=== PATIENT | male | born 1985 | race African-American/Black ===

== ENCOUNTER 2017-01-05 05:33 | Inpatient (IN) | payer OTHER ==
--- NOTE | 2017-01-05 06:15 | PDOC ---
[id number] SIDE PAIN Time Seen by Provider: 01/05/17 05:45 - History of Present Illness Initial Comments: 01/05/17 06:12 CHIEF COMPLAINT: right sided chest pain HISTORY OF PRESENT ILLNESS: 31 yo M with hx of PE and sickle cell anemia presents to ED with R sided chest pain x 5 hours. Patient reports pleuritic chest pain that is worse with movement. He denies any shortness of breath, palpitations, headache, lightheadedness, dizziness, back pain. No recent travel or sick contacts. PAST MEDICAL HISTORY: Denies past medical history FAMILY HISTORY: Denies SOCIAL HISTORY: Current smoker. 3-5 cigarettes daily. Occasional alcohol use, denies illicit drug use. SURGICAL HISTORY: Denies ALLERGIES: No known drug allergies REVIEW OF SYSTEMS General/Constitutional: Denies fever or chills. Denies weakness, weight change. HEENT: Denies change in vision. Denies ear pain or discharge. Denies sore throat. Cardiovascular: R sided chest pain worsened by movement and inspiration. Respiratory: Denies cough, wheezing, or hemoptysis. Gastrointestinal: Denies nausea, vomiting, diarrhea or constipation. Denies rectal bleeding. Genitourinary: Denies dysuria, frequency, or change in urination. Musculoskeletal: Denies joint or muscle swelling or pain. Denies neck or back pain. Skin and breasts: Denies rash or easy bruising. Neurologic: Denies headache, vertigo, loss of consciousness, or loss of sensation. PHYSICAL EXAM General Appearance: Well-appearing, appropriately dressed. No apparent distress , no intoxication. HEENT: EOMI, PERRLA, normal ENT inspection, normal voice, TMs normal, pharynx normal. No conjunctival pallor. No photophobia, scleral icterus. Neck: Supple. Trachea midline. No tenderness, rigidity, carotid bruit, stridor , lymphadenopathy, or thyromegaly. Respiratory/Chest: Lungs CTAB. No shortness of breath, chest tenderness, respiratory distress, accessory muscle use. No crackles, rales, rhonchi, stridor , wheezing, dullness Cardiovascular: RRR. S1, S2. No JVD, murmur, bradycardia, tachycardia. Vascular Pulses: Dorsalis-Pedis (R): 2+, Dorsalis-Pedis (L): 2+ Gastrointestinal/Abdominal: Normal bowel sounds. Abdomen soft, non-distended. No tenderness or rebound tenderness. No organomegaly, pulsatile mass, guarding , hernia, hepatomegaly, splenomegaly. Musculoskeletal/Extremities: Normal inspection. FROM of all extremities, normal capillary refill. No tenderness to extremities, pedal edema, swelling, erythema or deformity. Integumentary: Appropriate color, dry, warm. No cyanosis, erythema, jaundice or rash Neurologic: ux information architect II-XII intact. Fully oriented, alert. Appropriate mood/affect. Motor strength 5/5. No appreciable EOM palsy, facial droop or sensory deficit. 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) Asthma: Yes Suicide Attempt (Hx): No - Immunization History Td Vaccination: No Immunization Up to Date: Yes (FLU UTD) - Psycho/Social/Smoking Cessation Hx Anxiety: No Suicidal Ideation: No Smoking History: Never smoked Have you smoked in the past 12 months: Yes Number of Cigarettes Smoked Daily: 8 If you are a former smoker, when did you quit?: REF BOOKLET Information on smoking cessation initiated: No 'Breaking Loose' booklet given: 07/22/15 Hx Alcohol Use: No Drug/Substance Use Hx: No Substance Use Type: None *Physical Exam - Vital Signs Last Vital Signs Temp Pulse Resp BP Pulse Ox 98.0 F 59 L 14 143/79 93 L 01/05/17 06:00 01/05/17 06:00 01/05/17 06:00 01/05/17 06:00 01/05/17 06:00 ED Treatment Course - LABORATORY CBC & Chemistry Diagram: 01/06/17 05:35 01/06/17 05:35 Medical Decision Making - Medical Decision Making 01/05/17 06:19 31 yo M with hx of PE and sickle cell presents to ED with R sided pleuritic chest pain. Given O2 sat <95, recent hx of PE, absence of anticoagulation, will complete work up for PE. -CBC, CMP, PT/INR -CTA r/o PE Case discussed in detail with oncoming emergency provider including history, physical exam and ancillary studies. In brief, this patient is being seen in the ED for a chief complaint of: R sided chest pain I have completed the initial assessment interview note and have ordered the following labs: CBC, CMP, PT/INR I have reviewed the following results: pending Pending results: CTA Please call the PCP: Dr. Corona in the [place] Plan for disposition as follows: pending Oncoming NPA Mai has assumed care for the patient and will complete the evaluation and treatment. *DC/Admit/Observation/Transfer Diagnosis at time of Disposition: Chest pain Qualifiers: Chest pain type: unspecified Qualified Code(s): R07.9 - Chest pain, unspecified Pneumonia Qualifiers: Aspiration pneumonia type: unspecified Laterality: right Lung location: lower lobe of lung Sickle cell anemia Qualifiers: Sickle-cell associated disorders: without crisis Qualified Code(s): D57.1 - Sickle-cell disease without crisis - Discharge Dispostion Disposition: HOME Condition at time of disposition: Fair
[2017-01-05 06:42] LABS: EOSINOPHIL 1.4 % (0-4.5); MCH 36.6 pg (25.7-33.7); MCHC 35.6 g/dl (32.0-35.9); MEAN CELL VOLUME 102.7 fl (80-96); MEAN PLT VOLUME 7.7 fl (7.5-11.1); NEUTROPHILS 40.4 % (42.8-82.8); PLATELET COUNT 271 K/MM3 (134-434); RDW 15.4 % (11.9-15.9); WHITE BLOOD COUNT 12.5 K/mm3 (4.0-10.0)
[2017-01-05 06:54] LABS: INR 1.04 (0.82-1.09); PROTHROMBIN TIME (PATIENT) 11.5 SEC (9.98-11.88)
[2017-01-05 07:05] LABS: ALBUMIN 3.5 g/dl (3.4-5.0); ALK PHOS 69 U/L (45-117); ANION GAP 9 (8-16); BILIRUBIN,TOTAL 1.1 mg/dL (0.2-1.0); CALCIUM 8.6 mg/dL (8.5-10.1); CO2 28 mmol/L (21-32); CREATININE 0.9 mg/dL (0.7-1.3); GLUCOSE,RANDOM 96 mg/dL (74-106); SGOT/AST 45 U/L (15-37); SGPT/ALT 60 U/L (12-78); TOT PROT 7.5 g/dl (6.4-8.2)
[2017-01-05] MEDS ORDERED: morphine CARPU-JECT 4 MG/1 ML DISP.SYRIN IVPUSH ONE (07:05)
[2017-01-05] MEDS ORDERED: morphine CARPU-JECT 4 MG/1 ML DISP.SYRIN ONE (07:15)
--- NOTE | 2017-01-05 07:15 | PDOC ---
*Physical Exam - Vital Signs Last Vital Signs Temp Pulse Resp BP Pulse Ox 98.0 F 59 L 14 143/79 93 L 01/05/17 06:00 01/05/17 06:00 01/05/17 06:00 01/05/17 06:00 01/05/17 06:00 ED Treatment Course - LABORATORY CBC & Chemistry Diagram: 01/05/17 06:20 01/05/17 06:20 - ADDITIONAL ORDERS Additional order review: Laboratory Results 01/05/17 06:20 Sodium 141 Potassium 3.8 Chloride 104 Carbon Dioxide 28 Anion Gap 9 BUN 10 Creatinine 0.9 D Creat Clearance w eGFR > 60 Random Glucose 96 Calcium 8.6 Total Bilirubin 1.1 H AST 45 H ALT 60 Alkaline Phosphatase 69 Total Protein 7.5 Albumin 3.5 01/05/17 06:20 RBC 3.73 L MCV 102.7 H MCHC 35.6 RDW 15.4 MPV 7.7 Neutrophils % 40.4 L Lymphocytes % 49.2 H Monocytes % 8.0 Eosinophils % 1.4 Basophils % 1.0 Medical Decision Making - Medical Decision Making 01/05/17 07:14 Signout received from ORION Bustillo. Briefly, this is a 31 year old male with a history of SCD and DVT/PE x approximately 2 yrs ago (not on AC) who presents complaining of right-sided chest pain. V/s are notable for SpO2 of 93% on RA. Labs are unremarkable with normal H/H. Plan: -Apply O2 -Obtain EKG -Obtain CXR to r/o infiltrate -IV fluids -Morphine 4mg IVP for pain -Order CTA chest to r/o PE -Reassess EKG: Sinus bradycardia at 58bpm. Iaolated TWI in III, biphasic T wave in V1, T wave flattening in V2 and V3. 01/05/17 08:00 CXR reviewed and interpreted by radiology: fibrotic changes in the RLL, stable in appearance when compared to prior study. No infiltrate. 01/05/17 13:05 CTA reviewed: no evidence of PE. Atelectasis in the right lung base, cannot rule out infiltrate. WBC 12.5 and SpO2 93% on RA are consistent with PNA. As sickle cell disease makes this patient high risk, will treat with IV abx and request admission. 01/05/17 13:24 Accepted for admission by Dr. Graves. *DC/Admit/Observation/Transfer Diagnosis at time of Disposition: Chest pain Qualifiers: Chest pain type: unspecified Qualified Code(s): R07.9 - Chest pain, unspecified Pneumonia Qualifiers: Aspiration pneumonia type: unspecified Laterality: right Lung location: lower lobe of lung Sickle cell disease Qualifiers: Sickle-cell associated disorders: without crisis Qualified Code(s): D57.1 - Sickle-cell disease without crisis - Discharge Dispostion Condition at time of disposition: Guarded Admit: Yes
--- NOTE | 2017-01-05 11:57 | EKG ---
Test Reason : Blood Pressure : / mmHG Vent. Rate : 058 BPM Atrial Rate : 058 BPM P-R Int : 190 ms QRS Dur : 092 ms QT Int : 456 ms P-R-T Axes : 044 029 003 degrees QTc Int : 447 ms SINUS BRADYCARDIA NONSPECIFIC ST ABNORMALITY ABNORMAL ECG NO PREVIOUS ECGS AVAILABLE Confirmed by KARY PÉREZ MD ([id number]) on 01/05/2017 11:56:42 AM Referred By: Confirmed By:KARY PÉREZ MD
[2017-01-05] MEDS ORDERED: SODIUM CHLORIDE 1,000 ML IV SCH (12:15)
[2017-01-05] MEDS ORDERED: AZITHROMYCIN IVPB 500 MG in DEXTROSE 5%-WATER - 250 ML IVPB ONE (13:01)
[2017-01-05] MEDS ORDERED: CEFTRIAXONE 1 GM in DEXTROSE 5%-WATER - 50 ML IVPB ONE (13:01)
[2017-01-05] MEDS ORDERED: AZITHROMYCIN IVPB 250 ML IVPB ONE (13:16)
[2017-01-05] MEDS ORDERED: CEFTRIAXONE 50 ML ONE (13:16)
[2017-01-05] MEDS ORDERED: morphine CARPU-JECT 2 MG/1 ML DISP.SYRIN IVPUSH PRN (13:45)
[2017-01-05] MEDS: SODIUM CHLORIDE 1,000 ML IV SCH ×2 (14:03→22:12)
[2017-01-05 14:12] LABS: TROPONIN I < 0.02 ng/ml (0.00-0.05)
--- NOTE | 2017-01-05 14:24 | HP ---
Admitting History and Physical - Admission Chief Complaint: right sided chest pain History of Present Illness: 31 year old AAM PMHx SSD was in his usual state of health until around midnight when he developed right sided pleuritic chest pain. Pain exacerbated with movement. He had no other associated symptoms, no shortness of breath, palpitations, cough, nausea/vomiting, fevers/chills. His son has a cold. Pain continued until this morning so he decided to come to ED for further evaluation. He has a history of DVT/PE about 2 years ago, after a long flight. He sees a timber management technician In the [place]. He was on about 2 years of anticoagulation than taken off. Does not recall if he has had a hypercoaguable workup. History Source: Patient Limitations to Obtaining History: No Limitations - Past Medical History Heme/Onc: Yes: Sickle Cell Disease, Other (Hx of DVT/PE) - Past Surgical History Past Surgical History: Yes: None - Smoking History Smoking history: Current every day smoker Have you smoked in the past 12 months: Yes Aproximately how many cigarettes per day: 5 If you are a former smoker, when did you quit?: REF BOOKLET - Alcohol/Substance Use Hx Alcohol Use: No History of Substance Use: reports: None - Social History ADL: Independent Occupation: unemployed History of Recent Travel: No Home Medications - Allergies Allergies/Adverse Reactions: Allergies Allergy/AdvReac Type Severity Reaction Status Date / Time No Known Allergies Allergy Verified 01/05/17 05:59 - Home Medications Home Medications: Ambulatory Orders Folic Acid 1 mg PO DAILY 01/05/17 NK [No Known Home Medication] 01/05/17 Family Disease History - Family Disease History Family Disease History: Other: Father (SSD) Review of Systems - Review of Systems Constitutional: reports: No Symptoms Eyes: reports: No Symptoms HENT: reports: No Symptoms Neck: reports: No Symptoms Cardiovascular: reports: Chest Pain Respiratory: reports: No Symptoms Gastrointestinal: reports: No Symptoms Genitourinary: reports: No Symptoms Breasts: reports: No Symptoms Reported Musculoskeletal: reports: No Symptoms Integumentary: reports: No Symptoms Neurological: reports: No Symptoms Endocrine: reports: No Symptoms Hematology/Lymphatic: reports: No Symptoms Psychiatric: reports: No Symptoms Physical Examination Vital Signs: Vital Signs Temperature 98.0 F 01/05/17 06:00 Pulse Rate 61 01/05/17 11:15 Respiratory Rate 18 01/05/17 11:15 Blood Pressure 126/59 01/05/17 11:15 O2 Sat by Pulse Oximetry (%) 99 01/05/17 11:38 Constitutional: Yes: Well Nourished, No Distress, Calm Eyes: Yes: WNL, Conjunctiva Clear, EOM Intact HENT: Yes: WNL, Atraumatic, Normocephalic Neck: Yes: WNL, Supple, Trachea Midline Cardiovascular: Yes: WNL, Regular Rate and Rhythm Respiratory: Yes: WNL, Regular, CTA Bilaterally Gastrointestinal: Yes: WNL, Normal Bowel Sounds, Soft Extremities: Yes: WNL Edema: No Peripheral Pulses WNL: Yes ...Motor Strength: WNL Labs: CBC, BMP 01/05/17 06:20 01/05/17 06:20 Imaging - Results Chest X-ray: Report Reviewed, Image Reviewed Cat Scan: Report Reviewed, Image Reviewed EKG: Report Reviewed, Image Reviewed Problem List - Problems (1) Chest pain Code(s): R07.9 - CHEST PAIN, UNSPECIFIED Qualifiers: Chest pain type: unspecified Qualified Code(s): R07.9 - Chest pain, unspecified Assessment/Plan 31 year old AAM with a PMHx SSD presents with pleuritic chest pain. 1) Pleuritic chest pain with evidence of hypoxia and leukocytosis in a patient with SSD and hx DVT/PE >2 years ago -CTA-PE ruled out -will start aggressive IV hydration -will cover for pneumonia IV abx-Rocephin/Azithromycin and repeat xray after hydration -supplemental oxygen as needed, taper as tolerated -check LDH -pain control -hematology evaluation -dvt ppx heparin subq
[2017-01-05 14:49] VITALS: BMI 31.6
[2017-01-05] MEDS ORDERED: PNEUMOC 13-VAL CONJ-DIP CRM/PF 0.5 ML DISP.SYRIN IM ONE (14:49)
[2017-01-05 15:42] LABS: LDH 271 U/L (87-241)
[2017-01-05] MEDS ORDERED: PNEUMOCOCCAL 23 VACCINE 0.5 ML VIAL IM ONE (18:00)
--- NOTE | 2017-01-05 22:04 | CONSULT ---
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 Pain exacerbated with movement. He had no other associated symptoms, no shortness of breath, palpitations, cough, nausea/vomiting, fevers/chills. He has a history of DVT/PE about 2 years ago, after a long flight. He sees a watershed program manager In [place]. He was on about 2 years of anticoagulation than taken off. Does not recall if he has had a hypercoaguable workup. History Source: Patient Limitations to Obtaining History: No Limitations - Past Medical History Heme/Onc: Yes: Sickle Cell Disease, Other (Hx of DVT/PE) Hemoglobin SC diseaase - Past Surgical History Past Surgical History: Yes: None - Smoking History Smoking history: Current every day smoker - Social History ADL: Independent Occupation: unemployed Home Medications - Allergies Allergies/Adverse Reactions: Allergies Allergy/AdvReac Type Severity Reaction Status Date / Time No Known Allergies Allergy Verified 01/05/17 05:59 - Home Medications Home Medications: Ambulatory Orders Folic Acid 1 mg PO DAILY 01/05/17 NK [No Known Home Medication] 01/05/17 Current Medications Folic Acid (Folic Acid -) 1 mg PO DAILY [facility] Heparin Sodium (Porcine) (Heparin -) 5,000 unit SQ BID [facility] Last Admin: 01/05/17 22:10 Dose: Not Given Azithromycin 250 mg/ Dextrose 250 mls @ 250 mls/hr IVPB DAILY [facility] Ceftriaxone Sodium (Rocephin 1gm Ivpb (Pre-Docked)) 50 mls @ 100 mls/hr IVPB DAILY [facility] Sodium Chloride (Normal Saline -) 1,000 mls @ 150 mls/hr IV ASDIR [facility] Last Admin: 01/06/17 05:27 Dose: 150 mls/hr Morphine Sulfate (Morphine Injection -) 2 mg IVPUSH Q6H PRN PRN Reason: FOR CHEST PAIN Last Admin: 01/05/17 15:54 Dose: 2 mg Family Disease History - Family Disease History Family Disease History: Other: Father (SSD) Physical Examination Vital Signs: Vital Signs Temperature 98.0 F 01/05/17 06:00 Pulse Rate 61 01/05/17 11:15 Respiratory Rate 18 01/05/17 11:15 Blood Pressure 126/59 01/05/17 11:15 O2 Sat by Pulse Oximetry (%) 99 01/05/17 11:38 Constitutional: Yes: Well Nourished, No Distress, Calm Eyes: Yes: WNL, Conjunctiva Clear, EOM Intact HENT: Yes: WNL, Atraumatic, Normocephalic Neck: Yes: WNL, Supple, Trachea Midline Cardiovascular: Yes: WNL, Regular Rate and Rhythm Respiratory: Yes: WNL, Regular, CTA Bilaterally Gastrointestinal: Yes: WNL, Normal Bowel Sounds, Soft Extremities: Yes: WNL Abnormal Lab Results 01/05/17 01/05/17 06:20 13:29 Total Bilirubin 1.1 H AST 45 H LD Total 271 H Creatine Kinase 328 H Assessment/Plan 31 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 Patient reports mild pain crises in the joints usually resolves with oralpain meds. Denies h/o acute chest or any other complications from SC disease Denies h/o prior blood transfusions h/o provoked PE after long flight came off coumadin after 2 yrs. CTA is negative Leukocytosis concerning for sickle crises agree with fluids/pain management/folic acid on empiric antibiotics pending culture will check type and screen/hemoglobin electrophoresis will monitor clinical course
[2017-01-05] MEDS: HEPARIN NA (PORCINE) 5,000 UNITS/ML 1ML VIAL SQ SCH (22:10)
[2017-01-06] MEDS: SODIUM CHLORIDE 1,000 ML IV SCH ×2 (05:27→14:13)
[2017-01-06 07:34] LABS: BASOPHIL 1.3 % (0-2.0); EOSINOPHIL 2.5 % (0-4.5); MCH 36.8 pg (25.7-33.7); MCHC 35.7 g/dl (32.0-35.9); MEAN PLT VOLUME 8.1 fl (7.5-11.1); NEUTROPHILS 37.8 % (42.8-82.8); PLATELET COUNT 267 K/MM3 (134-434); WHITE BLOOD COUNT 10.6 K/mm3 (4.0-10.0)
[2017-01-06 08:01] LABS: ALBUMIN 3.4 g/dl (3.4-5.0); ANION GAP 9 (8-16); CALCIUM 8.6 mg/dL (8.5-10.1); CO2 28 mmol/L (21-32); CREATININE 0.9 mg/dL (0.7-1.3); GLUCOSE,RANDOM 90 mg/dL (74-106); SGOT/AST 39 U/L (15-37); SGPT/ALT 60 U/L (12-78)
[2017-01-06 08:03] LABS: ALK PHOS 68 U/L (45-117); BILIRUBIN,TOTAL 1.1 mg/dL (0.2-1.0); TOT PROT 7.1 g/dl (6.4-8.2)
[2017-01-06] MEDS ORDERED: PT OWN MED DRAWER 7, Y5N ONE (09:08)
[2017-01-06] MEDS: HEPARIN NA (PORCINE) 5,000 UNITS/ML 1ML VIAL SQ SCH (09:11)
[2017-01-06] MEDS ORDERED: AZITHROMYCIN IVPB 250 MG in DEXTROSE 5%-WATER - 250 ML IVPB SCH (10:00)
[2017-01-06] MEDS ORDERED: FOLIC ACID 1 MG TABLET (FP) PO SCH (10:00)
[2017-01-06] MEDS ORDERED: CEFTRIAXONE 50 ML IVPB SCH (10:00)
[2017-01-06 18:38] VITALS: BP 133/75; PULSE 67; TEMP 98.5
--- NOTE | 2017-01-06 20:06 | PN ---
Progress Note (short form) - Note Progress Note: Patient seen and examined. No pain requirements. Feels well. Last Vital Signs Temp Pulse Resp BP Pulse Ox 98.5 F 67 14 133/75 96 01/06/17 18:38 01/06/17 18:38 01/06/17 18:38 01/06/17 18:38 01/06/17 10:00 HEENT: [place], EOM Intact Oropharynx: No thrush, No mucositis Cor: RSR, No murmurs, No gallops Lungs: Clear to P&A Abd: Soft, Normal bowel sounds, No organomegaly Ext:No significant edema Skin: No rashes, Integument intact CBC, BMP 01/06/17 05:35 01/06/17 05:35 Current Medications Generic Name Dose Route Start Last Admin Trade Name Freq PRN Reason Stop Dose Admin Folic Acid 1 mg 01/06/17 10:00 01/06/17 09:11 Folic Acid - PO 1 mg DAILY SYBIL Administration Heparin Sodium (Porcine) 5,000 unit 01/05/17 22:00 01/06/17 09:11 Heparin - SQ Not Given BID SYBIL Azithromycin 250 mg/ Dextrose 250 mls @ 250 mls/hr 01/06/17 10:00 01/06/17 09: 56 IVPB 250 mls/hr DAILY SYBIL Administration Ceftriaxone Sodium 50 mls @ 100 mls/hr 01/06/17 10:00 01/06/17 09:12 Rocephin 1gm Ivpb (Pre-Docked) IVPB 100 mls/hr DAILY SYBIL Administration Sodium Chloride 1,000 mls @ 150 mls/hr 01/05/17 13:45 01/06/17 14:13 Normal Saline - IV 150 mls/hr ASDIR SYBIL Administration Morphine Sulfate 2 mg 01/05/17 13:45 01/05/17 15:54 Morphine Injection - IVPUSH 2 mg Q6H PRN Administration FOR CHEST PAIN Impression: SC disease Clinically well No objection to discharge.
[2017-01-09 00:07] LABS: Hgb A2 3.5 % (0.7-3.1)
[2017-01-09 13:49] LABS: CHLAM PENU IGM. <1:10
[2017-01-10 00:07] LABS: MYCOPLASMA PNEUMONIAE,IG G AB 527 U/mL (0-99)
== END 2017-01-06 21:33 | disposition home or self-care (01) | DRG 663 ==
LOC: JER 05:33 → JERBED 13:25 → J5S 15:05
PROVIDERS: ADMIT Internal Medicine; ATTEND Internal Medicine
DX: D57.1 Sickle-cell disease without crisis (principal); R07.89 Other chest pain; F17.210 Nicotine dependence, cigarettes, uncomplicated; Z86.711 Personal history of pulmonary embolism; Z86.718 Personal history of other venous thrombosis and embolism
CPT/HCPCS: 36415; 71020-TC; 71275-TC; 80053; 82550; 82553; 83021; 83615; 84484; 85025; 85610; 85660; 86631; 86632; 86738; 86850; 86870; 86900; 86901; 86902; 87040; 87899; 90732; 93005; 93010; 99284-25; G0009

== ENCOUNTER 2017-03-18 14:20 | Emergency (ER) | payer OTHER ==
[2017-03-18 14:36] VITALS: TEMP 98.1; BMI 33.0
[2017-03-18] MEDS ORDERED: HYDROmorphone HCL CARPU-JECT 1 MG/1 ML DISP.SYRIN IVPUSH ONE ×2 (15:05→18:58)
[2017-03-18] MEDS ORDERED: SODIUM CHLORIDE 1,000 ML IV STA (15:06)
[2017-03-18] MEDS ORDERED: HYDROmorphone HCL CARPU-JECT 1 MG/1 ML DISP.SYRIN ONE ×2 (15:10→19:07)
--- NOTE | 2017-03-18 15:15 | PDOC ---
[id number] No Limitations - History of Present Illness Initial Comments: 32 yo M with h/o sickle cell disease presented to the ED with L lower leg pain since this morning. He took 2 alieve and muscle relaxant without any relief. Patient was previously seen in the ED for leg pain x 2 and acute chest crisis x 1. He also admitted he ran out of folic acid and NSAID. Denies fatigue, fever, chills, chest pain, sob, penile pain, abd pain. 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) Asthma: Yes Suicide Attempt (Hx): No - Immunization History Td Vaccination: No Immunization Up to Date: Yes (FLU UTD) - Psycho/Social/Smoking Cessation Hx Anxiety: No Suicidal Ideation: No Smoking History: Current every day smoker Have you smoked in the past 12 months: Yes Number of Cigarettes Smoked Daily: 2 If you are a former smoker, when did you quit?: REF BOOKLET Information on smoking cessation initiated: No 'Breaking Loose' booklet given: 07/22/15 Hx Alcohol Use: No Drug/Substance Use Hx: No Substance Use Type: None <Andrei Rodriguez - Last Filed: 03/18/17 19:30> <Quoc Mack - Last Filed: 03/29/17 13:45> - Past Medical History Allergies/Adverse Reactions: Allergies Allergy/AdvReac Type Severity Reaction Status Date / Time No Known Allergies Allergy Verified 01/05/17 05:59 Home Medications: Ambulatory Orders Folic Acid 1 mg PO DAILY 01/05/17 Ibuprofen 800 mg PO TID PRN #21 tablet 03/18/17 Review of Systems - Review of Systems Able to Perform ROS?: Yes Is the patient limited Spanish proficient: No Constitutional: No: Chills, Fever, Weakness Respiratory: No: Cough, Shortness of Breath Cardiac (ROS): No: Chest Pain ABD/GI: No: Nausea, Vomiting, Abdominal cramping : No: Dysuria, Pain, Testicular Pain Musculoskeletal: Yes: Other (LL leg pain). No: Back Pain <Andrei Rodriguez - Last Filed: 03/18/17 19:30> *Physical Exam - Vital Signs Last Vital Signs Temp Pulse Resp BP Pulse Ox 98.1 F 77 17 154/95 97 03/18/17 14:33 03/18/17 14:33 03/18/17 14:33 03/18/17 14:33 03/18/17 14:33 - Physical Exam General Appearance: Yes: Apparent Distress Respiratory/Chest: positive: Lungs Clear, Normal Breath Sounds Cardiovascular: positive: Regular Rhythm, Regular Rate, S1, S2. negative: Murmur Gastrointestinal/Abdominal: positive: Soft. negative: Distended, Guarding, Rebound, Tenderness Extremity: negative: Swelling, Calf Tenderness, Erythema Neurologic: positive: Fully Oriented, Alert <Andrei Rodriguez - Last Filed: 03/18/17 19:30> - Vital Signs Last Vital Signs Temp Pulse Resp BP Pulse Ox 98.1 F 69 18 145/68 99 03/18/17 14:33 03/18/17 19:23 03/18/17 19:23 03/18/17 19:23 03/18/17 19:23 <Quoc Mack - Last Filed: 03/29/17 13:45> ED Treatment Course - LABORATORY CBC & Chemistry Diagram: 03/18/17 15:07 03/18/17 15:30 <Andrei Rodriguez - Last Filed: 03/18/17 19:30> - LABORATORY CBC & Chemistry Diagram: 03/18/17 15:07 03/18/17 15:30 - ADDITIONAL ORDERS Additional order review: 03/18/17 15:07 RBC 3.87 L MCV 104.0 H MCHC 34.4 RDW 14.9 MPV 8.2 Neutrophils % 43.6 Lymphocytes % 43.2 H Monocytes % 9.5 Eosinophils % 2.5 Basophils % 1.2 - RADIOLOGY Radiology Studies Ordered: Category Date Time Status DUPLEX VASCUL US-1 LEG [US] Stat Ultrasound 03/18/17 15:42 Completed - Medications Given in the ED: ED Medications Discontinued Medications Generic Name Dose Route Start Last Admin Trade Name Freq PRN Reason Stop Dose Admin Folic Acid 1 mg 03/18/17 18:56 03/18/17 19:19 Folic Acid - PO 03/18/17 18:57 1 mg ONCE ONE Administration Hydromorphone HCl 1 mg 03/18/17 15:05 03/18/17 15:17 Dilaudid Injection - IVPUSH 03/18/17 15:06 1 mg ONCE ONE Administration Hydromorphone HCl 1 mg 03/18/17 18:58 03/18/17 19:20 Dilaudid Injection - IVPUSH 03/18/17 18:59 1 mg ONCE ONE Administration Sodium Chloride 1,000 mls @ 1,000 mls/hr 03/18/17 15:06 03/18/17 15:17 Normal Saline - IV 03/18/17 16:05 1,000 mls/hr ASDIR STA Administration Ketorolac Tromethamine 30 mg 03/18/17 17:54 03/18/17 18:04 Toradol Injection - IVPUSH 03/18/17 17:55 30 mg ONCE ONE Administration <Quoc Mack - Last Filed: 03/29/17 13:45> Medical Decision Making - Medical Decision Making 03/18/17 15:44 32 yo M with h/o sickle cell disease p/w LL leg pain. Likely vaso-occlusive crisis, will give IVF and dilaudid for pain. Send CBC with recticu count. Also will do duplex of L leg to r/o DVT. <Andrei Rodriguez - Last Filed: 03/18/17 19:30> - Medical Decision Making 03/29/17 13:42 Labs reviewed. Mild increase WBC is typical for sickle cell, no evidence of acute infection. Hb is consistent with SC sickle cell, with mild elevation of bili and AST. Retics are increased to expected level. DVT study was negative. Patient stated pain better controlled prior to discharge. Stable for discharge to PMD for follow up. NSAID's prescribed for pain. Patient advised that narcotic pain meds for chronic sickle cell pain should be prescribed through the primary MD. He agreed with this plan. Laboratory Tests 03/18/17 03/18/17 15:07 15:30 WBC 11.2 H RBC 3.87 L Hgb 13.9 Hct 40.2 MCV 104.0 H MCHC 34.4 RDW 14.9 Plt Count 293 MPV 8.2 Neutrophils % 43.6 Lymphocytes % 43.2 H Monocytes % 9.5 Eosinophils % 2.5 Basophils % 1.2 Retic Count 7.07 H Sodium 142 Potassium 3.9 Chloride 105 Carbon Dioxide 25 Anion Gap 12 BUN 9 Creatinine 1.0 Creat Clearance w eGFR > 60 Random Glucose 79 Calcium 8.5 Total Bilirubin 1.2 H AST 68 H D ALT 73 D Alkaline Phosphatase 79 Total Protein 7.5 Albumin 3.9 <Quoc Mack - Last Filed: 03/29/17 13:45> *DC/Admit/Observation/Transfer - Discharge Dispostion Admit: No <Andrei Rodriguez - Last Filed: 03/18/17 19:30> <Quoc Mack - Last Filed: 03/29/17 13:45> Diagnosis at time of Disposition: Sickle cell crisis - Discharge Dispostion Disposition: HOME Condition at time of disposition: Stable - Prescriptions Prescriptions: Ibuprofen 800 mg PO TID PRN #21 tablet PRN Reason: Pain - Referrals Referrals: Taisha Fry MD [Primary Care Provider] - - Patient Instructions Additional Instructions: Please follow up with your brim stiffener immediately to chronic management of your sickle cell disease and refill your folic acid and pain medication.
[2017-03-18 15:50] LABS: BASOPHIL 1.2 % (0-2.0); EOSINOPHIL 2.5 % (0-4.5); MCH 35.8 pg (25.7-33.7); MCHC 34.4 g/dl (32.0-35.9); MEAN PLT VOLUME 8.2 fl (7.5-11.1); NEUTROPHILS 43.6 % (42.8-82.8); PLATELET COUNT 293 K/MM3 (134-434); RDW 14.9 % (11.9-15.9); WHITE BLOOD COUNT 11.2 K/mm3 (4.0-10.0)
[2017-03-18 16:15] LABS: ALBUMIN 3.9 g/dl (3.4-5.0); ALK PHOS 79 U/L (45-117); BILIRUBIN,TOTAL 1.2 mg/dL (0.2-1.0); CALCIUM 8.5 mg/dL (8.5-10.1); CO2 25 mmol/L (21-32); COCKROFT - GAULT 170.09; GLUCOSE,RANDOM 79 mg/dL (74-106); SGPT/ALT 73 U/L (12-78); TOT PROT 7.5 g/dl (6.4-8.2)
[2017-03-18 16:40] LABS: SGOT/AST 68 U/L (15-37)
[2017-03-18 17:24] LABS: ANION GAP 12 (8-16)
[2017-03-18] MEDS ORDERED: KETOROLAC TROMETHAMINE 30 MG/1 ML VIAL IVPUSH ONE (17:54)
[2017-03-18] MEDS ORDERED: KETOROLAC TROMETHAMINE 15 MG/ML VIAL ONE (17:55)
[2017-03-18] MEDS ORDERED: FOLIC ACID 1 MG TABLET (FP) PO ONE (18:56)
--- NOTE | 2017-03-18 18:56 | PDOC ---
*Physical Exam - Vital Signs Last Vital Signs Temp Pulse Resp BP Pulse Ox 98.1 F 77 17 154/95 97 03/18/17 14:33 03/18/17 14:33 03/18/17 14:33 03/18/17 14:33 03/18/17 14:33 ED Treatment Course - LABORATORY CBC & Chemistry Diagram: 03/18/17 15:07 03/18/17 15:30 - ADDITIONAL ORDERS Additional order review: Laboratory Results 03/18/17 15:30 Sodium 142 Potassium 3.9 Chloride 105 Carbon Dioxide 25 Anion Gap 12 BUN 9 Creatinine 1.0 Creat Clearance w eGFR > 60 Random Glucose 79 Calcium 8.5 Total Bilirubin 1.2 H AST 68 H D ALT 73 D Alkaline Phosphatase 79 Total Protein 7.5 Albumin 3.9 03/18/17 15:07 RBC 3.87 L MCV 104.0 H MCHC 34.4 RDW 14.9 MPV 8.2 Neutrophils % 43.6 Lymphocytes % 43.2 H Monocytes % 9.5 Eosinophils % 2.5 Basophils % 1.2 - RADIOLOGY Radiology Studies Ordered: Category Date Time Status DUPLEX VASCUL US-1 LEG [US] Stat Ultrasound 03/18/17 15:42 Completed - Medications Given in the ED: ED Medications Discontinued Medications Generic Name Dose Route Start Last Admin Trade Name Freq PRN Reason Stop Dose Admin Hydromorphone HCl 1 mg 03/18/17 15:05 03/18/17 15:17 Dilaudid Injection - IVPUSH 03/18/17 15:06 1 mg ONCE ONE Administration Sodium Chloride 1,000 mls @ 1,000 mls/hr 03/18/17 15:06 03/18/17 15:17 Normal Saline - IV 03/18/17 16:05 1,000 mls/hr ASDIR STA Administration Ketorolac Tromethamine 30 mg 03/18/17 17:54 03/18/17 18:04 Toradol Injection - IVPUSH 03/18/17 17:55 30 mg ONCE ONE Administration Medical Decision Making - Medical Decision Making 03/18/17 18:52 Patient is a 32-year-old man with a history of sickle cell SC disease. He presents complaining of his typical L pain in his legs. His pain is greater in the left leg from the knee down to the calf. There is no swelling. There is no redness. He denies any ulcers. He denies any fever. He denies any chest pain or shortness of breath. On examination, his lungs are clear. His heart is regular rhythm without murmur. Abdomen is benign. Extremities are notable for normal joints and normal skin without tenderness or swelling. Given focal pain in the left calf greater than the right calf, duplex Doppler ultrasound of the left leg was ordered. More likely explanation is simply sickle cell bony vaso-occlusive crisis pain. Labs are notable for mild increase in bilirubin. There is also a mild increase in the AST. 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 Reticulocyte count is pending. Ultrasound of the left lower extremity shows no DVT. Plan is to control pain, patient received IV fluids and Toradol along with hydromorphone. Plan for reassessment and probable discharge. He has his internet site designer in [place] who gives him his opiates as needed. He also needs a refill of his folic acid. Laboratory Tests 03/18/17 03/18/17 15:07 15:30 WBC 11.2 H RBC 3.87 L Hgb 13.9 Hct 40.2 MCV 104.0 H MCHC 34.4 RDW 14.9 Plt Count 293 MPV 8.2 Neutrophils % 43.6 Lymphocytes % 43.2 H Monocytes % 9.5 Eosinophils % 2.5 Basophils % 1.2 Sodium 142 Potassium 3.9 Chloride 105 Carbon Dioxide 25 Anion Gap 12 BUN 9 Creatinine 1.0 Creat Clearance w eGFR > 60 Random Glucose 79 Calcium 8.5 Total Bilirubin 1.2 H AST 68 H D ALT 73 D Alkaline Phosphatase 79 Total Protein 7.5 Albumin 3.9 *DC/Admit/Observation/Transfer Diagnosis at time of Disposition: Sickle cell crisis - Discharge Dispostion Disposition: HOME Condition at time of disposition: Stable Admit: No - Prescriptions Prescriptions: Ibuprofen 800 mg PO TID PRN #21 tablet PRN Reason: Pain - Referrals Referrals: Taisha Fry MD [Primary Care Provider] - - Patient Instructions Additional Instructions: Please follow up with your internet site designer immediately to chronic management of your sickle cell disease and refill your folic acid and pain medication.
[2017-03-18] MEDS ORDERED: FOLIC ACID 1 MG TABLET (FP) ONE (19:07)
[2017-03-18 19:24] VITALS: BP 145/68; PULSE 69
== END 2017-03-18 19:38 | disposition home or self-care (01) ==
LOC: JER 14:20 → SUPCPDRO 14:20 → JER 19:38
PROC: 3E033NZ Introduction of Analgesics, Hypnotics, Sedatives into Peripheral Vein, Percutaneous Approach (ICD-10-PCS; principal; 2017-03-18)
PROC: 3E0333Z Introduction of Anti-inflammatory into Peripheral Vein, Percutaneous Approach (ICD-10-PCS; 2017-03-18)
DX: D57.00 Hb-SS disease with crisis, unspecified (principal)
CPT/HCPCS: 36415; 80053; 85025; 85044; 93971-TC; 99284-25

== ENCOUNTER 2017-06-12 00:12 | Inpatient (IN) | payer OTHER ==
--- NOTE | 2017-06-12 00:47 | PDOC ---
History of Present Illness - General Chief Complaint: Chest Pain Stated Complaint: CHEST PAIN Time Seen by Provider: 06/12/17 00:21 - History of Present Illness Initial Comments: 06/12/17 00:37 CHIEF COMPLAINT: chest discomfort HISTORY OF PRESENT ILLNESS: 32 yo M with hx of sickle cell and DVT/PE (2014) presents to ED with right sided chest pain and shortness of breath since yesterday. Patient states that the pain is worse when he moves and on inspiration, but it is not worsened on palpation. He states "this does not feel like a sickle cell crisis." Patient denies any recent cough, runny nose, fever, vomiting. PAST MEDICAL HISTORY: as per HPI FAMILY HISTORY: Denies SOCIAL HISTORY: Current smoker, 2-3 cigarettes daily. Denies alcohol, illicit drug use. SURGICAL HISTORY: Denies ALLERGIES: No known drug allergies REVIEW OF SYSTEMS General/Constitutional: Denies fever or chills. Denies weakness, weight change. HEENT: Denies change in vision. Denies ear pain or discharge. Denies sore throat. Cardiovascular: Right sided chest pain, SOB. Respiratory: Denies cough, wheezing, or hemoptysis. Gastrointestinal: Denies nausea, vomiting, diarrhea or constipation. Denies rectal bleeding. Genitourinary: Denies dysuria, frequency, or change in urination. Musculoskeletal: Denies joint or muscle swelling or pain. Denies neck or back pain. Skin: Denies rash or easy bruising. Neurologic: Denies headache, vertigo, loss of consciousness, or loss of sensation. PHYSICAL EXAM General Appearance: Well-appearing, appropriately dressed. No apparent distress , no intoxication. HEENT: EOMI, PERRLA. No conjunctival pallor. No photophobia, scleral icterus. Respiratory/Chest: Lungs CTAB. No shortness of breath, chest tenderness, respiratory distress, accessory muscle use. No crackles, rales, rhonchi, stridor , wheezing, dullness Cardiovascular: RRR. S1, S2. No Gastrointestinal/Abdominal: Normal bowel sounds. Abdomen soft, non-distended. No tenderness or rebound tenderness. No organomegaly, pulsatile mass, guarding , hernia, hepatomegaly, splenomegaly. Musculoskeletal/Extremities: Normal inspection. FROM of all extremities, normal capillary refill. Pelvis Stable. No CVA tenderness. No tenderness to extremities, pedal edema, swelling, erythema or deformity. Integumentary: Appropriate color, dry, warm. No cyanosis, erythema, jaundice or rash Neurologic: aquatic instructor II-XII intact. Fully oriented, alert. Appropriate mood/affect. Motor strength 5/5. No appreciable EOM palsy, facial droop or sensory deficit. 06/12/17 03:15 Past History - Past Medical History Allergies/Adverse Reactions: Allergies Allergy/AdvReac Type Severity Reaction Status Date / Time No Known Allergies Allergy Verified 06/12/17 00:22 Home Medications: Ambulatory Orders Folic Acid 1 mg PO DAILY 01/05/17 Anemia: Yes (SC TYPE SICKLE CELL ANEMIA) Asthma: Yes Suicide Attempt (Hx): No - Immunization History Td Vaccination: No Immunization Up to Date: Yes (FLU UTD) - Psycho/Social/Smoking Cessation Hx Anxiety: No Suicidal Ideation: No Smoking History: Current every day smoker Have you smoked in the past 12 months: Yes Number of Cigarettes Smoked Daily: 2 If you are a former smoker, when did you quit?: REF BOOKLET Information on smoking cessation initiated: No 'Breaking Loose' booklet given: 07/22/15 Hx Alcohol Use: No Drug/Substance Use Hx: No Substance Use Type: None *Physical Exam - Vital Signs Last Vital Signs Temp Pulse Resp BP Pulse Ox 98.4 F 87 19 135/77 97 06/12/17 00:23 06/12/17 00:23 06/12/17 00:23 06/12/17 00:23 06/12/17 00:24 ED Treatment Course - LABORATORY CBC & Chemistry Diagram: 06/12/17 00:27 06/12/17 00:27 - ADDITIONAL ORDERS Additional order review: Laboratory Results 06/12/17 06/12/17 06/12/17 01:02 00:27 00:27 INR D-Dimer 805 H Sodium Potassium Chloride Carbon Dioxide Anion Gap BUN Creatinine Creat Clearance w eGFR Random Glucose Calcium Magnesium Total Bilirubin AST ALT Alkaline Phosphatase Creatine Kinase Creatine Kinase Index CK-MB (CK-2) Troponin I Total Protein Albumin Urine Color Yellow Urine Appearance Clear Urine pH 6.0 Urine Protein 2+ H Urine Glucose (UA) Negative Urine Ketones Negative Urine Blood 1+ H Urine Nitrite Negative Urine Bilirubin Negative Urine Urobilinogen 4.0 e.u/dl Ur Leukocyte Esterase Negative Urine RBC 1 Urine WBC 1 Urine Bacteria Rare Urine Mucus Rare Opiates Screen Negative Methadone Screen Negative Barbiturate Screen Negative Phencyclidine Screen Negative Ur Amphetamines Screen Negative MDMA (Ecstasy) Screen Negative Benzodiazepines Screen Negative Cocaine Screen Negative U Marijuana (THC) Screen Negative 06/12/17 06/12/17 00:27 00:27 INR 1.04 D-Dimer Sodium 141 Potassium 3.6 Chloride 105 Carbon Dioxide 28 Anion Gap 8 BUN 6 L D Creatinine 1.2 Creat Clearance w eGFR > 60 Random Glucose 118 H D Calcium 8.3 L Magnesium 2.1 Total Bilirubin 1.6 H D AST 42 H D ALT 59 Alkaline Phosphatase 85 Creatine Kinase 246 D Creatine Kinase Index Y CK-MB (CK-2) < 1.000 Troponin I < 0.02 Total Protein 7.0 Albumin 3.3 L Urine Color Urine Appearance Urine pH Urine Protein Urine Glucose (UA) Urine Ketones Urine Blood Urine Nitrite Urine Bilirubin Urine Urobilinogen Ur Leukocyte Esterase Urine RBC Urine WBC Urine Bacteria Urine Mucus Opiates Screen Methadone Screen Barbiturate Screen Phencyclidine Screen Ur Amphetamines Screen MDMA (Ecstasy) Screen Benzodiazepines Screen Cocaine Screen U Marijuana (THC) Screen 06/12/17 00:27 RBC 3.73 L MCV 102.9 H MCHC 33.9 RDW 14.8 MPV 8.5 Neutrophils % 47.7 Lymphocytes % 40.0 Monocytes % 8.5 Eosinophils % 2.4 Basophils % 1.4 - RADIOLOGY Radiology Studies Ordered: Category Date Time Status CHEST CTA [CT] Stat CT Scan 06/12/17 01:51 Taken - Medications Given in the ED: ED Medications Discontinued Medications Generic Name Dose Route Start Last Admin Trade Name Freq PRN Reason Stop Dose Admin Enoxaparin Sodium 100 mg 06/12/17 04:12 06/12/17 04:30 Lovenox - SQ 06/12/17 04:13 100 mg ONCE ONE Administration Ketorolac Tromethamine 30 mg 06/12/17 04:40 06/12/17 05:05 Toradol Injection - IVPUSH 06/12/17 04:41 30 mg ONCE ONE Administration Morphine Sulfate 1 mg 06/12/17 02:55 06/12/17 03:16 Morphine Injection - IVPUSH 06/12/17 02:56 1 mg ONCE ONE Administration Sodium Chloride 1,000 ml 06/12/17 01:45 06/12/17 01:55 Normal Saline - IV 06/12/17 01:46 1,000 ml ONCE ONE Administration Medical Decision Making - Medical Decision Making 06/12/17 03:17 32 yo M with hx of sickle cell and DVT/PE (2014) presents to ED with right sided chest pain and shortness of breath since yesterday. -CBC, CMP, PT/INR, Mg, D-dimer -CXR, EKG Laboratory Tests 06/12/17 06/12/17 06/12/17 00:27 00:27 01:02 WBC 13.1 H D-Dimer 805 H Total Bilirubin 1.6 H D AST 42 H D D-dimer elevated to 805, concern for DVT/PE vs SCC. -CTA r/o PE Patient c/o pain, 1 mg morphine given. 06/12/17 04:17 CTA results: Suboptimal opacification of the pulmonary arteries, without gross evidence of PE, although small segmental emboli cannot be excluded. Anterior right upper and middle lobe opacities likely represent atelectasis but infarcts cannot be completely excluded. Read by: Goran Dial MD -[facility] Will admit to inpatient services for V/Q scan. Discussed case with admitting MD Ambrocio for PCP [facility], who accepts patient for inpatient admission. *DC/Admit/Observation/Transfer Diagnosis at time of Disposition: Sickle cell anemia Qualifiers: Sickle-cell associated disorders: with unspecified crisis Qualified Code(s): D57.00 - Hb-SS disease with crisis, unspecified Pulmonary embolism Qualifiers: Pulmonary embolism type: other Chronicity: acute Acute cor pulmonale presence: without acute cor pulmonale Qualified Code(s): I26.99 - Other pulmonary embolism without acute cor pulmonale - Discharge Dispostion Admit: Yes Decision to Admit order Date/Time: Decision to Admit Order Category Date Time Status Decision to Admit to Hospital Routine Admission 06/12/17 06:04 Active - Referrals Referrals: Leonid Al MD [Primary Care Provider] -
[2017-06-12 01:09] LABS: URINE APPEARANCE CLEAR; URINE BILIRUBIN NEGATIVE (NEGATIVE); URINE BLOOD 1+ (NEGATIVE); URINE COLOR YELLOW; URINE GLUCOSE (UA) NEGATIVE (NEGATIVE); URINE KETONE NEGATIVE (NEGATIVE); URINE LEUK ESTERASE NEGATIVE (NEGATIVE); URINE NITRITE NEGATIVE (NEGATIVE); URINE UROBILINOGEN 4.0 E.U/dl mg/dL (0.2-1.0)
[2017-06-12 01:12] LABS: BASOPHIL 1.4 % (0-2.0); EOSINOPHIL 2.4 % (0-4.5); MCH 34.9 pg (25.7-33.7); MCHC 33.9 g/dl (32.0-35.9); MEAN CELL VOLUME 102.9 fl (80-96); MEAN PLT VOLUME 8.5 fl (7.5-11.1); NEUTROPHILS 47.7 % (42.8-82.8); PLATELET COUNT 276 K/MM3 (134-434); RDW 14.8 % (11.9-15.9); WHITE BLOOD COUNT 13.1 K/mm3 (4.0-10.0)
[2017-06-12 01:18] LABS: URINE PROTEIN 2+ (NEGATIVE)
[2017-06-12 01:20] LABS: URINE BACTERIA RARE /hpf (NONE SEEN); URINE MUCUS RARE; URINE RBC 1 /hpf (0-3); URINE WBC 1 /hpf (3-5)
[2017-06-12 01:30] LABS: URINE MARIJUANA THC NEGATIVE ng/ml (CUTOFF=50)
[2017-06-12 01:33] LABS: ALBUMIN 3.3 g/dl (3.4-5.0); ANION GAP 8 (8-16); BILIRUBIN,TOTAL 1.6 mg/dL (0.2-1.0); CALCIUM 8.3 mg/dL (8.5-10.1); CO2 28 mmol/L (21-32); CREATININE 1.2 mg/dL (0.7-1.3); GLUCOSE,RANDOM 118 mg/dL (74-106); MAGNESIUM 2.1 mg/dL (1.8-2.4); SGOT/AST 42 U/L (15-37); SGPT/ALT 59 U/L (12-78)
[2017-06-12 01:36] LABS: ALK PHOS 85 U/L (45-117); TROPONIN I < 0.02 ng/ml (0.00-0.05)
[2017-06-12 01:40] LABS: INR 1.04 (0.82-1.09); PROTHROMBIN TIME (PATIENT) 11.4 SEC (9.98-11.88)
[2017-06-12] MEDS ORDERED: SODIUM CHLORIDE 0.9% 1000 ML INFUS.BAG IV ONE (01:45)
[2017-06-12] MEDS ORDERED: morphine CARPU-JECT 2 MG/1 ML DISP.SYRIN IVPUSH ONE (02:55)
[2017-06-12] MEDS ORDERED: morphine CARPU-JECT 2 MG/1 ML DISP.SYRIN ONE (03:05)
--- NOTE | 2017-06-12 03:52 | PDOC ---
*Physical Exam - Vital Signs Last Vital Signs Temp Pulse Resp BP Pulse Ox 98.4 F 87 19 135/77 97 06/12/17 00:23 06/12/17 00:23 06/12/17 00:23 06/12/17 00:23 06/12/17 00:24 <Monica Gonzalez - Last Filed: 06/12/17 05:48> - Vital Signs Last Vital Signs Temp Pulse Resp BP Pulse Ox 98.4 F 87 19 135/77 97 06/12/17 00:23 06/12/17 00:23 06/12/17 00:23 06/12/17 00:23 06/12/17 00:24 <Alex Mccurdy - Last Filed: 06/16/17 19:56> ED Treatment Course - LABORATORY CBC & Chemistry Diagram: 06/12/17 00:27 06/12/17 00:27 - ADDITIONAL ORDERS Additional order review: Laboratory Results 06/12/17 06/12/17 06/12/17 01:02 00:27 00:27 INR D-Dimer 805 H Sodium Potassium Chloride Carbon Dioxide Anion Gap BUN Creatinine Creat Clearance w eGFR Random Glucose Calcium Magnesium Total Bilirubin AST ALT Alkaline Phosphatase Creatine Kinase Creatine Kinase Index CK-MB (CK-2) Troponin I Total Protein Albumin Urine Color Yellow Urine Appearance Clear Urine pH 6.0 Urine Protein 2+ H Urine Glucose (UA) Negative Urine Ketones Negative Urine Blood 1+ H Urine Nitrite Negative Urine Bilirubin Negative Urine Urobilinogen 4.0 e.u/dl Ur Leukocyte Esterase Negative Urine RBC 1 Urine WBC 1 Urine Bacteria Rare Urine Mucus Rare Opiates Screen Negative Methadone Screen Negative Barbiturate Screen Negative Phencyclidine Screen Negative Ur Amphetamines Screen Negative MDMA (Ecstasy) Screen Negative Benzodiazepines Screen Negative Cocaine Screen Negative U Marijuana (THC) Screen Negative 06/12/17 06/12/17 00:27 00:27 INR 1.04 D-Dimer Sodium 141 Potassium 3.6 Chloride 105 Carbon Dioxide 28 Anion Gap 8 BUN 6 L D Creatinine 1.2 Creat Clearance w eGFR > 60 Random Glucose 118 H D Calcium 8.3 L Magnesium 2.1 Total Bilirubin 1.6 H D AST 42 H D ALT 59 Alkaline Phosphatase 85 Creatine Kinase 246 D Creatine Kinase Index Y CK-MB (CK-2) < 1.000 Troponin I < 0.02 Total Protein 7.0 Albumin 3.3 L Urine Color Urine Appearance Urine pH Urine Protein Urine Glucose (UA) Urine Ketones Urine Blood Urine Nitrite Urine Bilirubin Urine Urobilinogen Ur Leukocyte Esterase Urine RBC Urine WBC Urine Bacteria Urine Mucus Opiates Screen Methadone Screen Barbiturate Screen Phencyclidine Screen Ur Amphetamines Screen MDMA (Ecstasy) Screen Benzodiazepines Screen Cocaine Screen U Marijuana (THC) Screen 06/12/17 00:27 RBC 3.73 L MCV 102.9 H MCHC 33.9 RDW 14.8 MPV 8.5 Neutrophils % 47.7 Lymphocytes % 40.0 Monocytes % 8.5 Eosinophils % 2.4 Basophils % 1.4 - Medications Given in the ED: ED Medications Discontinued Medications Generic Name Dose Route Start Last Admin Trade Name Freq PRN Reason Stop Dose Admin Enoxaparin Sodium 100 mg 06/12/17 04:12 06/12/17 04:30 Lovenox - SQ 06/12/17 04:13 100 mg ONCE ONE Administration Ketorolac Tromethamine 30 mg 06/12/17 04:40 06/12/17 05:05 Toradol Injection - IVPUSH 06/12/17 04:41 30 mg ONCE ONE Administration Morphine Sulfate 1 mg 06/12/17 02:55 06/12/17 03:16 Morphine Injection - IVPUSH 06/12/17 02:56 1 mg ONCE ONE Administration Sodium Chloride 1,000 ml 06/12/17 01:45 06/12/17 01:55 Normal Saline - IV 06/12/17 01:46 1,000 ml ONCE ONE Administration <Monica Gonzalez - Last Filed: 06/12/17 05:48> - LABORATORY CBC & Chemistry Diagram: 06/13/17 05:45 06/13/17 05:45 - ADDITIONAL ORDERS Additional order review: Laboratory Results 06/12/17 06/12/17 06/12/17 01:02 00:27 00:27 INR D-Dimer 805 H Sodium Potassium Chloride Carbon Dioxide Anion Gap BUN Creatinine Creat Clearance w eGFR Random Glucose Calcium Magnesium Total Bilirubin AST ALT Alkaline Phosphatase Creatine Kinase Creatine Kinase Index CK-MB (CK-2) Troponin I Total Protein Albumin Urine Color Yellow Urine Appearance Clear Urine pH 6.0 Urine Protein 2+ H Urine Glucose (UA) Negative Urine Ketones Negative Urine Blood 1+ H Urine Nitrite Negative Urine Bilirubin Negative Urine Urobilinogen 4.0 e.u/dl Ur Leukocyte Esterase Negative Urine RBC 1 Urine WBC 1 Urine Bacteria Rare Urine Mucus Rare Opiates Screen Negative Methadone Screen Negative Barbiturate Screen Negative Phencyclidine Screen Negative Ur Amphetamines Screen Negative MDMA (Ecstasy) Screen Negative Benzodiazepines Screen Negative Cocaine Screen Negative U Marijuana (THC) Screen Negative 06/12/17 06/12/17 00:27 00:27 INR 1.04 D-Dimer Sodium 141 Potassium 3.6 Chloride 105 Carbon Dioxide 28 Anion Gap 8 BUN 6 L D Creatinine 1.2 Creat Clearance w eGFR > 60 Random Glucose 118 H D Calcium 8.3 L Magnesium 2.1 Total Bilirubin 1.6 H D AST 42 H D ALT 59 Alkaline Phosphatase 85 Creatine Kinase 246 D Creatine Kinase Index Y CK-MB (CK-2) < 1.000 Troponin I < 0.02 Total Protein 7.0 Albumin 3.3 L Urine Color Urine Appearance Urine pH Urine Protein Urine Glucose (UA) Urine Ketones Urine Blood Urine Nitrite Urine Bilirubin Urine Urobilinogen Ur Leukocyte Esterase Urine RBC Urine WBC Urine Bacteria Urine Mucus Opiates Screen Methadone Screen Barbiturate Screen Phencyclidine Screen Ur Amphetamines Screen MDMA (Ecstasy) Screen Benzodiazepines Screen Cocaine Screen U Marijuana (THC) Screen 06/12/17 00:27 RBC 3.73 L MCV 102.9 H MCHC 33.9 RDW 14.8 MPV 8.5 Neutrophils % 47.7 Lymphocytes % 40.0 Monocytes % 8.5 Eosinophils % 2.4 Basophils % 1.4 - Medications Given in the ED: ED Medications Discontinued Medications Generic Name Dose Route Start Last Admin Trade Name Freq PRN Reason Stop Dose Admin Morphine Sulfate 1 mg 06/12/17 02:55 06/12/17 03:16 Morphine Injection - IVPUSH 06/12/17 02:56 1 mg ONCE ONE Administration Sodium Chloride 1,000 ml 06/12/17 01:45 06/12/17 01:55 Normal Saline - IV 06/12/17 01:46 1,000 ml ONCE ONE Administration <Alex Mccurdy - Last Filed: 06/16/17 19:56> Medical Decision Making - Medical Decision Making Dr. Ambrocio was paged @5:48. Awaiting call back. <Monica Gonzalez - Last Filed: 06/12/17 05:48> - Medical Decision Making 06/12/17 03:51 agree with care from ORION Bustillo <Alex Mccurdy - Last Filed: 06/16/17 19:56> *DC/Admit/Observation/Transfer <Monica Gonzalez - Last Filed: 06/12/17 05:48> <Alex Mccurdy - Last Filed: 06/16/17 19:56> Diagnosis at time of Disposition: Sickle cell anemia, Pulmonary embolism - Discharge Dispostion Disposition: HOME Condition at time of disposition: Good - Prescriptions
[2017-06-12] MEDS ORDERED: ENOXAPARIN NA (PORCINE) 100 MG/1 ML DISP.SYRIN SQ ONE ×3 (04:12→11:17)
[2017-06-12] MEDS ORDERED: KETOROLAC TROMETHAMINE 30 MG/1 ML VIAL IVPUSH ONE (04:40)
[2017-06-12] MEDS ORDERED: KETOROLAC TROMETHAMINE 30 MG/1 ML VIAL ONE (05:00)
[2017-06-12] MEDS ORDERED: morphine CARPU-JECT 4 MG/1 ML DISP.SYRIN IVPUSH PRN (10:00)
[2017-06-12] MEDS ORDERED: ALBUTEROL SO4 2.5/IPRATROPIUM 0.5 INH SOL 3 ML VIAL.NEB. NEB PRN (10:03)
--- NOTE | 2017-06-12 10:16 | EKG ---
Test Reason : Blood Pressure : / mmHG Vent. Rate : 080 BPM Atrial Rate : 080 BPM P-R Int : 164 ms QRS Dur : 094 ms QT Int : 384 ms P-R-T Axes : 050 013 005 degrees QTc Int : 442 ms NORMAL SINUS RHYTHM POSSIBLE LEFT ATRIAL ENLARGEMENT NONSPECIFIC T WAVE ABNORMALITY ABNORMAL ECG WHEN COMPARED WITH ECG OF 05-JAN-2017 07:23, NONSPECIFIC T WAVE ABNORMALITY NOW EVIDENT IN LATERAL LEADS Confirmed by MD ESVIN, MARA ([id number]) on 06/12/2017 10:16:19 AM Referred By: Confirmed By:MARA MCALLISTER MD
[2017-06-12] MEDS ORDERED: ALBUTEROL SO4 2.5/IPRATROPIUM 0.5 INH SOL 3 ML VIAL.NEB. NEB ONE (10:20)
[2017-06-12] MEDS: FOLIC ACID 1 MG TABLET (FP) PO SCH (10:37)
[2017-06-12] MEDS: LEVOFLOXACIN 500 MG IVPB 100 ML IVPB SCH (10:37)
[2017-06-12 11:10] LABS: TROPONIN I < 0.02 ng/ml (0.00-0.05)
[2017-06-12] MEDS: ENOXAPARIN NA (PORCINE) 100 MG/1 ML DISP.SYRIN SQ SCH ×2 (11:45→22:48)
--- NOTE | 2017-06-12 15:53 | CON.PULM ---
Consult Consult Specialty:: PULMONARY Referred by:: NICOLAS Reason for Consultation:: R/O PE - History of Present Illness Chief Complaint: SOB/CP History of Present Illness: 32 M. OBESE AA MALE PRESENTS WITH GRADUAL ONSET OVER 3-5 DAYS OF PLEURITIC TYPE RIGHT SIDED CHEST PAIN. DENIES COUGH/TRAUMA/FEVER/DOES HAVE MILD SOB. PAIN IS NOT RELIEVED BY IBUPROFEN OR INHALERS. NOT REPRODUCIBLE BY PALPATION. CURRENT ACTIVE SMOKER. - Past Surgical History Past Surgical History: Yes: None - Alcohol/Substance Use Hx Alcohol Use: No History of Substance Use: reports: None - Smoking History Smoking history: Current every day smoker Have you smoked in the past 12 months: Yes Aproximately how many cigarettes per day: 2 If you are a former smoker, when did you quit?: REF BOOKLET - Social History ADL: Independent Occupation: unemployed History of Recent Travel: No Home Medications - Allergies Allergies/Adverse Reactions: Allergies Allergy/AdvReac Type Severity Reaction Status Date / Time No Known Allergies Allergy Verified 06/12/17 00:22 - Home Medications Home Medications: Ambulatory Orders Folic Acid 1 mg PO DAILY 01/05/17 Family Disease History - Family Disease History Family Disease History: Other: Father (SSD) Review of Systems - Review of Systems Constitutional: reports: No Symptoms Eyes: reports: No Symptoms HENT: reports: No Symptoms Neck: reports: No Symptoms Cardiovascular: reports: Chest Pain, Shortness of Breath Respiratory: reports: SOB on Exertion Gastrointestinal: reports: No Symptoms Physical Exam Vital Sings: Vital Signs Temperature 97.9 F 06/12/17 11:57 Pulse Rate 78 06/12/17 11:57 Respiratory Rate 18 06/12/17 11:57 Blood Pressure 137/85 06/12/17 11:57 O2 Sat by Pulse Oximetry (%) 98 06/12/17 11:57 Constitutional: Yes: Calm Eyes: Yes: EOM Intact HENT: Yes: Normocephalic Neck: Yes: Trachea Midline Cardiovascular: Yes: Regular Rate and Rhythm Respiratory: Yes: CTA Bilaterally Gastrointestinal: Yes: Normal Bowel Sounds Renal/: Yes: WNL Musculoskeletal: Yes: WNL Extremities: Yes: WNL Edema: No Integumentary: Yes: WNL Labs: ALL REVIEWED Imaging - Results Chest X-ray: Report Reviewed, Image Reviewed Cat Scan: Report Reviewed, Image Reviewed Problem List - Problems (1) Sickle cell anemia Code(s): D57.1 - SICKLE-CELL DISEASE WITHOUT CRISIS Qualifiers: Sickle-cell associated disorders: with unspecified crisis Qualified Code(s): D57.00 - Hb-SS disease with crisis, unspecified; D57.0 - Hb-SS disease with crisis (2) Chest pain Code(s): R07.9 - CHEST PAIN, UNSPECIFIED Qualifiers: Chest pain type: unspecified Qualified Code(s): R07.9 - Chest pain, unspecified Assessment/Plan GIVEN PREVIOUS HX OF VTE/M. OBESITY/SEDENTARY LIFE STYLE/SS DISEASE I HAVE A MODERATE INDEX OF SUSPICION FOR PE CTA WAS SUB-OPTIMAL AND HENCE A V/Q HAS BEEN ORDERED AGREE WITH LOVENOX BID UNTILL PE RULED OUT CONSIDER VENOUS DUPLEX B/L LOWER EXTREMITIES WILL FOLLOW THANK YOU Any TOMAS MD
[2017-06-12 16:35] VITALS: BMI 33.7
[2017-06-12] MEDS ORDERED: morphine CARPU-JECT 4 MG/1 ML DISP.SYRIN IVPB PRN (21:26)
--- NOTE | 2017-06-12 21:56 | HP ---
Admitting History and Physical - Past Medical History Heme/Onc: Yes: Sickle Cell Disease, Other (Hx of DVT/PE) - Past Surgical History Past Surgical History: Yes: None - Smoking History Smoking history: Current every day smoker Have you smoked in the past 12 months: Yes Aproximately how many cigarettes per day: 2 If you are a former smoker, when did you quit?: REF BOOKLET - Alcohol/Substance Use Hx Alcohol Use: No History of Substance Use: reports: None - Social History ADL: Independent Occupation: unemployed History of Recent Travel: No Home Medications - Allergies Allergies/Adverse Reactions: Allergies Allergy/AdvReac Type Severity Reaction Status Date / Time No Known Allergies Allergy Verified 06/12/17 00:22 - Home Medications Home Medications: Ambulatory Orders Folic Acid 1 mg PO DAILY 01/05/17 Family Disease History - Family Disease History Family Disease History: Other: Father (SSD) Physical Examination Vital Signs: Vital Signs Temperature 99.3 F 06/12/17 18:31 Pulse Rate 89 06/12/17 18:31 Respiratory Rate 18 06/12/17 18:31 Blood Pressure 137/81 06/12/17 18:31 O2 Sat by Pulse Oximetry (%) 96 06/12/17 15:20
[2017-06-13 06:25] LABS: BASOPHIL 1.3 % (0-2.0); EOSINOPHIL 3.3 % (0-4.5); MCH 35.8 pg (25.7-33.7); MCHC 34.9 g/dl (32.0-35.9); MEAN CELL VOLUME 102.5 fl (80-96); MEAN PLT VOLUME 8.4 fl (7.5-11.1); PLATELET COUNT 270 K/MM3 (134-434); RDW 15.4 % (11.9-15.9); WHITE BLOOD COUNT 11.8 K/mm3 (4.0-10.0)
[2017-06-13 06:56] LABS: ALBUMIN 3.2 g/dl (3.4-5.0); ANION GAP 7 (8-16); CALCIUM 8.8 mg/dL (8.5-10.1); CO2 29 mmol/L (21-32); GLUCOSE,RANDOM 100 mg/dL (74-106)
[2017-06-13 07:00] LABS: ALK PHOS 84 U/L (45-117); BILIRUBIN,TOTAL 1.6 mg/dL (0.2-1.0); CREATININE 0.9 mg/dL (0.7-1.3); SGOT/AST 36 U/L (15-37); SGPT/ALT 52 U/L (12-78)
[2017-06-13] MEDS: ENOXAPARIN NA (PORCINE) 100 MG/1 ML DISP.SYRIN SQ SCH (09:55)
[2017-06-13] MEDS: FOLIC ACID 1 MG TABLET (FP) PO SCH (09:55)
[2017-06-13] MEDS: LEVOFLOXACIN 500 MG IVPB 100 ML IVPB SCH (09:59)
[2017-06-13 10:48] LABS: TROPONIN I < 0.02 ng/ml (0.00-0.05)
--- NOTE | 2017-06-13 12:28 | PN ---
Progress Note (short form) - Note Progress Note: Overall breathing feels better. No CP or SOB. V/Q : intermediate for PE Intake & Output 06/10/17 06/11/17 06/12/17 06/13/17 23:59 23:59 23:59 23:59 Intake Total 450 400 Balance 450 400 Weight 256 lb Last Vital Signs Temp Pulse Resp BP Pulse Ox 98.1 F 75 18 127/75 93 L 06/13/17 10:00 06/13/17 10:00 06/13/17 10:00 06/13/17 10:00 06/13/17 09:00 Active Medications Albuterol/Ipratropium (Duoneb -) 1 amp NEB Q6H PRN PRN Reason: SHORTNESS OF BREATH Last Admin: 06/12/17 11:56 Dose: 1 amp Enoxaparin Sodium (Lovenox -) 100 mg SQ BID [facility] Last Admin: 06/13/17 09:55 Dose: 100 mg Folic Acid (Folic Acid -) 1 mg PO DAILY [facility] Last Admin: 06/13/17 09:55 Dose: 1 mg Levofloxacin (Levaquin 500 Mg Premixed Ivpb -) 100 mls @ 100 mls/hr IVPB DAILY [facility] Last Admin: 06/13/17 09:59 Dose: 100 mls/hr Morphine Sulfate (Morphine Injection -) 2 mg IVPUSH Q4H PRN PRN Reason: PAIN Morphine Sulfate (Morphine Injection -) 4 mg IVPB Q4H PRN Last Admin: 06/12/17 22:47 Dose: 4 mg Constitutional: Yes: Calm Eyes: Yes: EOM Intact HENT: Yes: Normocephalic Neck: Yes: Trachea Midline Cardiovascular: Yes: Regular Rate and Rhythm Respiratory: Yes: CTA Bilaterally Gastrointestinal: Yes: Normal Bowel Sounds Renal/: Yes: WNL Musculoskeletal: Yes: WNL Extremities: Yes: WNL Edema: No Integumentary: Yes: WNL Labs: Laboratory Results - last 24 hr 06/13/17 06/13/17 06/13/17 05:45 05:45 05:45 WBC 11.8 H RBC 3.75 L Hgb 13.4 Hct 38.4 MCV 102.5 H MCH 35.8 H MCHC 34.9 RDW 15.4 Plt Count 270 MPV 8.4 Neutrophils % 38.0 L D Lymphocytes % 48.1 H D Monocytes % 9.3 Eosinophils % 3.3 Basophils % 1.3 Sodium 140 Potassium 3.9 Chloride 104 Carbon Dioxide 29 Anion Gap 7 L BUN 9 D Creatinine 0.9 D Creat Clearance w eGFR > 60 Random Glucose 100 Calcium 8.8 Total Bilirubin 1.6 H AST 36 ALT 52 Alkaline Phosphatase 84 Creatine Kinase 213 Troponin I < 0.02 Total Protein 7.0 Albumin 3.2 L Problem List - Problems (1) Sickle cell anemia Code(s): D57.1 - SICKLE-CELL DISEASE WITHOUT CRISIS Qualifiers: Sickle-cell associated disorders: with unspecified crisis Qualified Code(s): D57.00 - Hb-SS disease with crisis, unspecified; D57.0 - Hb-SS disease with crisis (2) Chest pain Code(s): R07.9 - CHEST PAIN, UNSPECIFIED Qualifiers: Chest pain type: unspecified Qualified Code(s): R07.9 - Chest pain, unspecified Suspected PE Assessment/Plan GIVEN PREVIOUS HX OF VTE/M. OBESITY/SEDENTARY LIFE STYLE/SS DISEASE -> WOULD ERR ON THE SIDE OF CAUTION AND CONTINUE TO TREAT FOR PE THERE IS NO PULMONARY CONTRAINDICATION TO D/C THE PATIENT HOME ON EITHER LOVENOX (HE TOOK 7 YEARS AGO) 100MG BID OR A NOAC SUCH ELIQUIS (10MG PO BID FOR 1 WEEK THEN DECREASE DOSE TO 5MG PO BID) I TOLD THE PATIENT HE NEEDS TO BE ASSESSED BY A FOLDER STITCHER OPERATOR AFTER D/C TO FURTHER INVESTIGATE THESE VTE ISSUES DR AARON
[2017-06-13 21:04] VITALS: BP 152/87; PULSE 66; TEMP 98.7
== END 2017-06-13 21:06 | disposition home or self-care (01) | DRG 662 ==
LOC: JER 00:12 → JERBED 06:04 → UNDOADMIN 06:34 → JERBED 09:44 → J4S 15:06
PROVIDERS: ADMIT Internal Medicine; ATTEND Internal Medicine
DX: D57.00 Hb-SS disease with crisis, unspecified (principal); I26.99 Other pulmonary embolism without acute cor pulmonale; Z86.718 Personal history of other venous thrombosis and embolism; Z86.711 Personal history of pulmonary embolism; F17.210 Nicotine dependence, cigarettes, uncomplicated; E66.9 Obesity, unspecified; Z68.33 Body mass index [BMI] 33.0-33.9, adult
CPT/HCPCS: 36415; 71020-TC; 71275-TC; 78582-TC; 80053; 80307; 81003; 81015; 82550; 82553; 83735; 84484; 85025; 85379; 85610; 93005; 93010; 93306-TC; 99285-25; A9539; A9540

== ENCOUNTER 2018-04-02 04:49 | Emergency (ER) | payer OTHER ==
[2018-04-02 05:06] VITALS: BMI 30.3
--- NOTE | 2018-04-02 05:24 | PDOC ---
History of Present Illness - General Chief Complaint: Shortness of Breath Stated Complaint: DIFFICULTY BREATHING Time Seen by Provider: 04/02/18 05:13 History Source: Patient, Old Records Exam Limitations: No Limitations - History of Present Illness Initial Comments: 04/02/18 05:19 33-year-old male with past medical history of sickle cell disease, asthma, pulmonary embolism resents emergency Department with dry nonproductive cough and shortness of breath for the past 12 hours. Patient reports of "chest tightness, but not a pain." Patient states this is not his usual sickle crisis noticed he feel as if he is in a crisis at this time. He denies fevers, chills, headaches, blurry vision, dizziness, chest pain, abdominal pain, nausea, vomiting. Past History - Past Medical History Allergies/Adverse Reactions: Allergies Allergy/AdvReac Type Severity Reaction Status Date / Time No Known Allergies Allergy Verified 04/02/18 05:07 Home Medications: Ambulatory Orders Folic Acid 1 mg PO DAILY 01/05/17 Apixaban [Eliquis] 5 mg PO BID #60 tablet 06/13/17 Albuterol Sulfate Inhaler - [Ventolin HFA Inhaler -] 1 - 2 inh PO Q4H #1 inhaler 04/02/18 Anemia: Yes (SC TYPE SICKLE CELL ANEMIA) Asthma: Yes Cancer: No CVA: No COPD: No CHF: No Dementia: No Diabetes: No GI Disorders: No Disorders: No HTN: No Hypercholesterolemia: No Liver Disease: No Seizures: No Thyroid Disease: No - Immunization History Td Vaccination: No Immunization Up to Date: Yes (FLU UTD) - Suicide/Smoking/Psychosocial Hx Smoking History: Current every day smoker Have you smoked in the past 12 months: Yes Number of Cigarettes Smoked Daily: 2 If you are a former smoker, when did you quit?: REF BOOKLET Information on smoking cessation initiated: No 'Breaking Loose' booklet given: 06/12/17 Hx Alcohol Use: No Drug/Substance Use Hx: No Substance Use Type: None Review of Systems - Review of Systems Able to Perform ROS?: Yes Is the patient limited Montenegrin proficient: No Constitutional: No: Symptoms Reported HEENTM: No: Symptoms Reported Respiratory: Yes: See HPI Cardiac (ROS): Yes: See HPI ABD/GI: No: Symptoms Reported : No: Symptoms Reported Musculoskeletal: No: Symptoms Reported Integumentary: No: Symptoms Reported Neurological: No: Symptoms reported *Physical Exam - Vital Signs Last Vital Signs Temp Pulse Resp BP Pulse Ox 97.9 F 78 20 160/91 95 04/02/18 05:02 04/02/18 05:02 04/02/18 05:02 04/02/18 05:02 04/02/18 05:02 - Physical Exam General Appearance: Yes: Appropriately Dressed. No: Apparent Distress HEENT: positive: Normal ENT Inspection Neck: positive: Trachea midline, Supple Respiratory/Chest: positive: Lungs Clear, Normal Breath Sounds. negative: Respiratory Distress, Accessory Muscle Use Cardiovascular: positive: Regular Rhythm, Regular Rate, S1, S2. negative: Edema , Murmur Gastrointestinal/Abdominal: positive: Normal Bowel Sounds, Soft. negative: Tender Musculoskeletal: positive: Normal Inspection. negative: CVA Tenderness Extremity: positive: Normal Inspection Integumentary: positive: Normal Color, Dry, Warm Neurologic: positive: Alert, Normal Response ED Treatment Course - LABORATORY CBC & Chemistry Diagram: 04/02/18 05:40 04/02/18 05:40 Medical Decision Making - Medical Decision Making 04/02/18 05:31 A/P: 33-year-old male with history of sickle cell disease, asthma and pulmonary embolism with 3 days of intermittent shortness of breath and chest tightness Respirations even and unlabored. Lungs with bibasilar wheezes noted Speaking full sentences. RRR. S1 and S2 present. No murmurs, rub or gallop noted. EKG sinus rhythm with rate of 72. TWI noted in lead III. Grossly unchanged from EKG done on 06/12/17. Given patient's history and current exam I cannot rule out pulmonary embolism in this patient. I'll perform a CTA to rule out pulmonary embolism. Argelia 04/02/18 06:59 I am signing this patient out to my colleague: MARICRUZ Mancera In brief, this patient is being seen in the ED for a chief complaint of: chest tightness and SOB I have completed the initial assessment interview note and have ordered: labs, UA, EKG, CXR, duonebs I have reviewed the following results: EKG Pending results are: chest CTA, labs Please call the PCP: Lisandra Plan for disposition is as follows: Pending *DC/Admit/Observation/Transfer Diagnosis at time of Disposition: Shortness of breath Asthma Qualifiers: Asthma severity: mild Asthma persistence: intermittent Asthma complication type : with acute exacerbation Qualified Code(s): J45.21 - Mild intermittent asthma with (acute) exacerbation - Discharge Dispostion Disposition: HOME Condition at time of disposition: Fair - Prescriptions Prescriptions: Albuterol Sulfate Inhaler - [Ventolin HFA Inhaler -] 1 - 2 inh PO Q4H #1 inhaler - Referrals Referrals: ON STAFF,NOT [Primary Care Provider] - - Patient Instructions Printed Discharge Instructions: DI for Asthma -- Adult, DI for Cough -- Adult Additional Instructions: Discharge Instructions: -The CT scan of your chest was negative for pulmonary embolism. -A prescription for an inhaler has been sent to your pharmacy; please take if needed -Return to the ER immediately with any worsening or concerning symptoms - Post Discharge Activity Forms/Work/School Notes: Back to Work
[2018-04-02] MEDS: ALBUTEROL SO4 2.5/IPRATROPIUM 0.5 INH SOL 3 ML VIAL.NEB. NEB SCH ×4 (05:41→07:10)
[2018-04-02 06:01] LABS: BASO % 0.4 % (0-2.0); EOS % 3.3 % (0-4.5); HEMATOCRIT 39.2 % (35.4-49); HEMOGLOBIN 13.9 GM/dL (11.7-16.9); LYMPH % 46.9 % (8-40); MCH 35.9 pg (25.7-33.7); MCHC 35.5 g/dl (32.0-35.9); MEAN CELL VOLUME 101.2 fl (80-96); MEAN PLT VOLUME 8.1 fl (7.5-11.1); MONO % 8.3 % (3.8-10.2); NEUT % 41.1 % (42.8-82.8); PLATELET COUNT 328 K/MM3 (134-434); RBC 3.88 M/mm3 (4.00-5.60); RDW 15.3 % (11.9-15.9)
[2018-04-02 06:17] LABS: INR 1.04 (0.82-1.09); PROTHROMBIN TIME (PATIENT) 11.7 SEC (9.7-13.0)
[2018-04-02 06:29] LABS: ALBUMIN 3.5 g/dl (3.4-5.0); ALK PHOS 88 U/L (45-117); ANION GAP 3 (8-16); BLOOD UREA NITROGEN 9 mg/dL (7-18); CALCIUM 8.4 mg/dL (8.5-10.1); CHLORIDE 106 mmol/L (98-107); CO2 32 mmol/L (21-32); CREATININE 0.9 mg/dL (0.7-1.3); GLUCOSE,RANDOM 96 mg/dL (74-106); POTASSIUM 3.8 mmol/L (3.5-5.1); SGOT/AST 48 U/L (15-37); SGPT/ALT 59 U/L (12-78); SODIUM 141 mmol/L (136-145); TOT PROT 7.5 g/dl (6.4-8.2)
--- NOTE | 2018-04-02 07:56 | PDOC ---
ED Treatment Course - LABORATORY CBC & Chemistry Diagram: 04/02/18 05:40 04/02/18 05:40 - ADDITIONAL ORDERS Additional order review: Laboratory Results 04/02/18 04/02/18 04/02/18 05:40 05:40 05:40 WBC 10.0 RBC 3.88 L Hgb 13.9 Hct 39.2 MCV 101.2 H MCH 35.9 H MCHC 35.5 RDW 15.3 Plt Count 328 D MPV 8.1 Neutrophils % 41.1 L Lymphocytes % 46.9 H Monocytes % 8.3 Eosinophils % 3.3 Basophils % 0.4 PT with INR 11.70 INR 1.04 Sodium 141 Potassium 3.8 Chloride 106 Carbon Dioxide 32 Anion Gap 3 L BUN 9 Creatinine 0.9 Creat Clearance w eGFR > 60 Random Glucose 96 Calcium 8.4 L Total Bilirubin 1.0 D AST 48 H D ALT 59 Alkaline Phosphatase 88 Total Protein 7.5 Albumin 3.5 04/02/18 05:40 RBC 3.88 L MCV 101.2 H MCHC 35.5 RDW 15.3 MPV 8.1 Neutrophils % 41.1 L Lymphocytes % 46.9 H Monocytes % 8.3 Eosinophils % 3.3 Basophils % 0.4 - Medications Given in the ED: ED Medications Discontinued Medications Generic Name Dose Route Start Last Admin Trade Name Freq PRN Reason Stop Dose Admin Albuterol/Ipratropium 1 amp 04/02/18 05:30 04/02/18 07:10 Duoneb - NEB 04/02/18 06:16 Not Given Q15M SYBIL Progress Note - Progress Note Progress Note: I have received report from ORION Rolle regarding this patient. Pt's initial chief complaint: dry cough and SOB x 12 hours Pt's work up completed prior to sign out: labs Pt treatment given from prior staff: duoneb Pt plan to be completed: chest CTA r/o PE Dispo: Pending Medical Decision Making - Medical Decision Making A/P: 33 y/o male with PMH sickle cell disease, asthma and PE x 2 c/o nonproductive cough and SOB x 12 hours. Patient was initially evaluated by ORION rolle. Labs resulted, patient feels better after duoneb. Awaiting results of CTA to r/o PE. Chest CTA IMPRESSION: No PE. Mild atelectatic changes to right posterior base; cannot r/ o superimposed infiltrate. [facility] called and said questionable PE in left lower branch but could be artifact. Spoke with Dr. Alaniz who took at look at the study again and he believes it is only artifact since it is only seen on 1 image. Spoke with patient. He has no fever and feels well. His O2 sat has improved. Will send albuterol inhaler to pharmacy to take for symptoms. instructed him to return to the ER with any worsening or concerning symptoms. The patient verbalizes understanding of all instructions, has no further questions and is awaiting discharge. *DC/Admit/Observation/Transfer Diagnosis at time of Disposition: Shortness of breath Asthma Qualifiers: Asthma severity: mild Asthma persistence: intermittent Asthma complication type : with acute exacerbation Qualified Code(s): J45.21 - Mild intermittent asthma with (acute) exacerbation - Discharge Dispostion Disposition: HOME Condition at time of disposition: Fair - Prescriptions Prescriptions: Albuterol Sulfate Inhaler - [Ventolin HFA Inhaler -] 1 - 2 inh PO Q4H #1 inhaler - Referrals Referrals: ON STAFF,NOT [Primary Care Provider] - - Patient Instructions Printed Discharge Instructions: DI for Cough -- Adult, DI for Asthma -- Adult Additional Instructions: Discharge Instructions: -The CT scan of your chest was negative for pulmonary embolism. -A prescription for an inhaler has been sent to your pharmacy; please take if needed -Return to the ER immediately with any worsening or concerning symptoms - Post Discharge Activity Forms/Work/School Notes: Back to Work
[2018-04-02 09:02] VITALS: BP 143/89; PULSE 83; TEMP 98.6
--- NOTE | 2018-04-07 16:07 | EKG ---
Test Reason : Blood Pressure : / mmHG Vent. Rate : 072 BPM Atrial Rate : 072 BPM P-R Int : 176 ms QRS Dur : 094 ms QT Int : 416 ms P-R-T Axes : 046 020 005 degrees QTc Int : 455 ms NORMAL SINUS RHYTHM POSSIBLE LEFT ATRIAL ENLARGEMENT BORDERLINE ECG WHEN COMPARED WITH ECG OF 12-JUN-2017 00:26, NO SIGNIFICANT CHANGE WAS FOUND Confirmed by MAINOR CASTRO MD ([id number]) on 04/07/2018 4:06:54 PM Referred By: Confirmed By:MAINOR CASTRO MD
== END 2018-04-02 10:33 | disposition home or self-care (01) ==
LOC: SUPCPDRO 04:49 → JER 04:49
DX: R06.02 Shortness of breath (principal); J45.21 Mild intermittent asthma with (acute) exacerbation; D57.1 Sickle-cell disease without crisis; Z86.711 Personal history of pulmonary embolism
CPT/HCPCS: 36415; 71275-TC; 80053; 82550; 82553; 84484; 85025; 85610; 93005; 93010; 99283-25; J7620

== ENCOUNTER 2018-09-06 17:30 | Emergency (ER) | payer OTHER ==
--- NOTE | 2018-09-06 17:42 | PDOC ---
Rapid Medical Evaluation Chief Complaint: Pain Time Seen by Provider: 09/06/18 17:39 Medical Evaluation: Allergies Allergy/AdvReac Type Severity Reaction Status Date / Time No Known Allergies Allergy Verified 04/02/18 05:07 09/06/18 17:39 I have performed a brief in person evaluation of this patient. The patient presents with a chief complaint of: right anterior/lateral rib pain Pertinent PE: Skin: Clear Lungs: Clear Heart: RRR Abd: Nontender MS: Moves all extremities without difficulty. Neuro: Alert and oriented Psych: Appropriate affect I have ordered the following: right ribs with AP CXR The patient will proceed to: pt will go to [facility] for further evaluation. Discharge Disposition - Diagnosis Rib pain on right side - Referrals - Patient Instructions - Post Discharge Activity
[2018-09-06 17:44] VITALS: BP 136/97; PULSE 93; TEMP 99.6; BMI 33.0
== END 2018-09-06 20:04 | disposition left against medical advice (07) ==
LOC: JER 17:30
DX: Z53.21 Procedure and treatment not carried out due to patient leaving prior to being seen by health care provider (principal)
CPT/HCPCS: 71046-TC-FY; 71101-TC-RT-FY; 99281-25

== ENCOUNTER 2019-08-10 01:01 | Emergency (ER) | payer OTHER ==
[2019-08-10 01:43] VITALS: BMI 30.9
[2019-08-10] MEDS ORDERED: ALBUTEROL SO4 2.5/IPRATROPIUM 0.5 INH SOL 3 ML VIAL.NEB. NEB ONE ×3 (01:56→03:20)
[2019-08-10] MEDS: ALBUTEROL SO4 2.5/IPRATROPIUM 0.5 INH SOL 3 ML VIAL.NEB. NEB SCH ×4 (03:20→04:02)
--- NOTE | 2019-08-10 03:32 | PDOC ---
*Physical Exam - Vital Signs Last Vital Signs Temp Pulse Resp BP Pulse Ox 98.3 F 80 20 158/97 95 08/10/19 01:35 08/10/19 03:06 08/10/19 03:06 08/10/19 03:06 08/10/19 03:06 ED Treatment Course - LABORATORY CBC & Chemistry Diagram: 08/10/19 03:40 08/10/19 03:40 Medical Decision Making - Medical Decision Making 08/10/19 19:28 Patient seen by the advanced practice provider under my direct supervision. Ancillary testing reviewed as necessary. I agree with plan as outlined by the advanced practice provider. *DC/Admit/Observation/Transfer Diagnosis at time of Disposition: Shortness of breath - Referrals Referrals: Taisha Fry MD [Primary Care Provider] - - Patient Instructions - Post Discharge Activity
--- NOTE | 2019-08-10 03:52 | PDOC ---
History of Present Illness - General Chief Complaint: Shortness of Breath Stated Complaint: DIFFICULTY BREATHING Time Seen by Provider: 08/10/19 03:29 - History of Present Illness Initial Comments: 08/10/19 03:49 33-year-old male with past medical history of sickle cell disease, asthma, pulmonary embolism resents emergency Department shortness of breath and chest tightness for the past 2 days reports that symptoms worsened in the last 24 hours. Patient states this is not his usual sickle crisis. denies chest pain, fever/ chills, bodyaches Past History - Past Medical History Allergies/Adverse Reactions: Allergies Allergy/AdvReac Type Severity Reaction Status Date / Time No Known Allergies Allergy Verified 08/10/19 01:43 Home Medications: Ambulatory Orders Folic Acid 1 mg PO DAILY 01/05/17 Apixaban [Eliquis] 5 mg PO BID #60 tablet 06/13/17 Albuterol Sulfate Inhaler - [Ventolin HFA Inhaler -] 1 - 2 inh PO Q4H #1 inhaler 04/02/18 Anemia: Yes (SC TYPE SICKLE CELL ANEMIA) Asthma: Yes Cancer: No CVA: No COPD: No (P.E,DVT) CHF: No Dementia: No Diabetes: No GI Disorders: No Disorders: No HTN: No Hypercholesterolemia: No Liver Disease: No Seizures: No Thyroid Disease: No - Immunization History Td Vaccination: No Immunization Up to Date: Yes (FLU UTD) - Suicide/Smoking/Psychosocial Hx Smoking History: Never smoked Have you smoked in the past 12 months: Yes Number of Cigarettes Smoked Daily: 2 If you are a former smoker, when did you quit?: REF BOOKLET 'Breaking Loose' booklet given: 09/06/18 Hx Alcohol Use: No Drug/Substance Use Hx: No Substance Use Type: None Cardiac Specific PMH - Complaint Specific PMHX Pacemaker: No Review of Systems - Review of Systems Able to Perform ROS?: Yes Is the patient limited Chinese proficient: No Constitutional: No: Symptoms Reported, See HPI, Chills, Diaphoresis, Fever, Loss of Appetite, Malaise, Night Sweats, Weakness, Weight Stable, Unintentional Wgt. Loss, Unexplained wgt Loss, Other Respiratory: Yes: Cough, Shortness of Breath, Wheezing Cardiac (ROS): No: Symptoms Reported, See HPI, Chest Pain, Edema, Irregular Heart Rate, Lightheadedness, Palpitations, Syncope, Chest Tightness, Other *Physical Exam - Vital Signs Last Vital Signs Temp Pulse Resp BP Pulse Ox 98.1 F 86 20 159/95 96 08/10/19 05:35 08/10/19 05:35 08/10/19 05:35 08/10/19 05:35 08/10/19 05:35 - Physical Exam General Appearance: Yes: Appropriately Dressed HEENT: positive: Normal ENT Inspection Respiratory/Chest: positive: Decreased Breath Sounds, Wheezing Cardiovascular: positive: Regular Rhythm, Regular Rate Extremity: positive: Normal Capillary Refill, Normal Inspection, Normal Range of Motion Integumentary: positive: Normal Color, Dry, Warm Neurologic: positive: Fully Oriented, Alert, Normal Mood/Affect ED Treatment Course - LABORATORY CBC & Chemistry Diagram: 08/10/19 03:40 08/10/19 03:40 - ADDITIONAL ORDERS Additional order review: Laboratory Results 08/10/19 08/10/19 08/10/19 03:50 03:40 03:40 PT with INR INR D-Dimer 1068 H Sodium 141 Potassium 3.3 L Chloride 106 Carbon Dioxide 26 Anion Gap 9 BUN 11.6 Creatinine 1.1 Est GFR (CKD-EPI)AfAm 100.97 Est GFR (CKD-EPI)NonAf 87.12 Random Glucose 99 Calcium 8.7 Total Bilirubin 0.9 AST 48 H ALT 60 Alkaline Phosphatase 92 Creatine Kinase 484 H Creatine Kinase Index 0.2 CK-MB (CK-2) 1.0 Troponin I < 0.02 Total Protein 8.0 Albumin 3.6 Blood Type O POSITIVE Antibody Screen Positive 08/10/19 03:40 PT with INR 11.90 INR 1.01 D-Dimer Sodium Potassium Chloride Carbon Dioxide Anion Gap BUN Creatinine Est GFR (CKD-EPI)AfAm Est GFR (CKD-EPI)NonAf Random Glucose Calcium Total Bilirubin AST ALT Alkaline Phosphatase Creatine Kinase Creatine Kinase Index CK-MB (CK-2) Troponin I Total Protein Albumin Blood Type Antibody Screen 08/10/19 03:40 RBC 4.42 MCV 100.6 H MCHC 35.4 RDW 15.4 MPV 8.4 Neutrophils % 25.8 L D Lymphocytes % 59.6 H D Monocytes % 10.1 Eosinophils % 3.4 Basophils % 1.1 - RADIOLOGY Radiology Studies Ordered: Category Date Time Status CHEST CTA [CT] Stat CT Scan 08/10/19 03:31 Ordered CHEST PA & LAT [RAD] Stat Radiology 08/10/19 03:30 Taken - Medications Given in the ED: ED Medications Discontinued Medications Generic Name Dose Route Start Last Admin Trade Name Lobo PRN Reason Stop Dose Admin Albuterol Sulfate 1 amp 08/10/19 05:01 08/10/19 05:36 Ventolin 0.083% Nebulizer Soln - NEB 08/10/19 05:02 Not Given ONCE ONE Albuterol/Ipratropium 1 amp 08/10/19 03:15 08/10/19 04:02 Duoneb - NEB 08/10/19 04:01 1 amp Q15M SYBIL Administration Methylprednisolone Sodium Succinate 125 mg 08/10/19 04:51 08/10/19 05:25 Solu-Medrol - IVPUSH 08/10/19 04:52 125 mg ONCE ONE Administration Medical Decision Making - Medical Decision Making 08/10/19 04:51 slight improved aeration d-dimer is elevated. patient is refusing CTA chest and any further treatment 08/10/19 05:55 Note: The patient insists on leaving the emergency dept and is signing out against medical advice. The patient understands the risks and complications that may result from the refusal of medical care and admission which includes and permanent disability. The patient has the mental capacity of understanding the risks of refusing care and is capable of making an informed decision. The patient was instructed to return to the emergency department should [] change [] mind regarding medical care or should [] condition worsen. The patient signed the Against Medical Advice form. *DC/Admit/Observation/Transfer Diagnosis at time of Disposition: Shortness of breath - Referrals Referrals: Taisha Fry MD [Primary Care Provider] - - Patient Instructions - Post Discharge Activity
[2019-08-10 04:00] LABS: BASO % 1.1 % (0-2.0); HEMOGLOBIN 15.7 GM/dL (11.7-16.9); MCH 35.6 pg (25.7-33.7); RBC 4.42 M/mm3 (4.00-5.60)
[2019-08-10 04:06] LABS: EOS % 3.4 % (0-4.5); HEMATOCRIT 44.5 % (35.4-49); LYMPH % 59.6 % (8-40); MCHC 35.4 g/dl (32.0-35.9); MEAN CELL VOLUME 100.6 fl (80-96); MEAN PLT VOLUME 8.4 fl (7.5-11.1); MONO % 10.1 % (3.8-10.2); NEUT % 25.8 % (42.8-82.8); PLATELET COUNT 313 K/MM3 (134-434); RDW 15.4 % (11.9-15.9); RETICULOCYTES 4.36 % (0.5-1.5)
[2019-08-10 04:07] LABS: INR 1.01 (0.83-1.09); PROTHROMBIN TIME (PATIENT) 11.9 SEC (9.7-13.0)
[2019-08-10 04:23] LABS: BLOOD UREA NITROGEN 11.6 mg/dL (7-18); CREATININE 1.1 mg/dL (0.55-1.3); GLUCOSE,RANDOM 99 mg/dL (74-106); SODIUM 141 mmol/L (136-145)
[2019-08-10 04:24] LABS: ALBUMIN 3.6 g/dl (3.4-5.0); ALK PHOS 92 U/L (45-117); ANION GAP 9 MMOL/L (8-16); BILIRUBIN,TOTAL 0.9 mg/dL (0.2-1); CALCIUM 8.7 mg/dL (8.5-10.1); CHLORIDE 106 mmol/L (98-107); CO2 26 mmol/L (21-32); POTASSIUM 3.3 mmol/L (3.5-5.1); SGOT/AST 48 U/L (15-37); SGPT/ALT 60 U/L (13-61)
[2019-08-10] MEDS ORDERED: methylPREDNISolone NA SUCC 125 MG/2 ML VIAL IVPUSH ONE (04:51)
[2019-08-10] MEDS ORDERED: ALBUTEROL SO4 0.083% IH SOL 2.5 MG/3 ML VIAL.NEB. NEB ONE (05:01)
[2019-08-10] MEDS ORDERED: methylPREDNISolone NA SUCC 125 MG/2 ML VIAL ONE (05:07)
[2019-08-10 05:36] VITALS: BP 159/95; PULSE 86; TEMP 98.1
== END 2019-08-10 05:37 | disposition left against medical advice (07) ==
LOC: JER 01:01
PROC: 3E033NZ Introduction of Analgesics, Hypnotics, Sedatives into Peripheral Vein, Percutaneous Approach (ICD-10-PCS; principal; 2019-08-10)
PROC: 3E0F7GC Introduction of Other Therapeutic Substance into Respiratory Tract, Via Natural or Artificial Opening (ICD-10-PCS; 2019-08-10)
DX: R06.02 Shortness of breath (principal); D57.80 Other sickle-cell disorders without crisis; J45.909 Unspecified asthma, uncomplicated; Z86.711 Personal history of pulmonary embolism
CPT/HCPCS: 36415; 71046-TC-FY; 80053; 82550; 82553; 84484; 85025; 85044; 85379; 85610; 86850; 86870; 86900; 86901; 86902; 94640; 96374; 99282-25

== ENCOUNTER 2019-12-23 11:16 | Emergency (ER) | payer OTHER ==
[2019-12-23 11:42] VITALS: BP 141/77; PULSE 77; TEMP 98.5; BMI 33.0
--- NOTE | 2019-12-23 11:58 | PDOC ---
History of Present Illness - General History Source: Patient, Old Records Exam Limitations: No Limitations - History of Present Illness Initial Comments: 12/23/19 12:57 CHIEF COMPLAINT: Knee pain HISTORY OF PRESENT ILLNESS: This is a 34-year-old male with sickle cell disease (follows with french pastry cook Dr. Kay in [place], has seen Sae forbes on admissions here) and DVT/PE after long flight 2 yrs ago (no longer on AC) presenting with two days of non-traumatic bilateral knee pain consistent with typical sickle crisis. He denies fevers/chills, cough, SOB, lower leg pain, or any other symptoms. He took Tylenol at home without relief of pain. He states that he ran out of his home folic acid and oxycodone 30mg. He denies being on hydroxyurea. He does not recall last transfusion or admission. PCP: None REVIEW OF SYSTEMS: GENERAL/CONSTITUTIONAL: No fever or chills. No weakness. No weight change. HEAD, EYES, EARS, NOSE AND THROAT: No change in vision. No ear pain or discharge. No sore throat. CARDIOVASCULAR: No chest pain or palpitations. RESPIRATORY: No cough, wheezing, or shortness of breath. GASTROINTESTINAL: No nausea, vomiting, diarrhea or constipation. GENITOURINARY: No dysuria, frequency, or change in urination. MUSCULOSKELETAL: See HPI. No neck or back pain. SKIN: No rash or easy bruising. NEUROLOGIC: No headache, vertigo, loss of consciousness, or loss of sensation. PSYCHIATRIC: No depression or anxiety. ENDOCRINE: No increased thirst. No abnormal weight change. HEMATOLOGIC/LYMPHATIC: No anemia, easy bleeding, or history of blood clots. ALLERGIC/IMMUNOLOGIC: No hives or skin allergy. No latex allergy. PHYSICAL EXAM: GENERAL: The patient is awake, alert, and fully oriented, in no acute distress. HEAD: Normal with no signs of trauma. ENT: Pupils equal, round and reactive to light, extraocular movements intact, sclera anicteric, conjunctiva clear. Neck supple. LUNGS: Clear to auscultation bilaterally. Normal excursion. No respiratory distress or use of accessory muscles. CV: RRR, S1/S2, no MRG. Cap refill < 2 sec. ABDOMEN: Soft, non-distended, non-tender. EXTREMITIES: Normal range of motion, no edema. NEUROLOGICAL: Normal speech, normal gait. CN II-XII grossly intact. PSYCH: Normal mood, normal affect. SKIN: Warm, dry, normal turgor, no rashes or lesions noted. 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) Asthma: Yes Cancer: No CVA: No COPD: No (P.E,DVT) CHF: No Dementia: No Diabetes: No GI Disorders: No Disorders: No HTN: No Hypercholesterolemia: No Liver Disease: No Seizures: No Thyroid Disease: No - Immunization History Td Vaccination: No Immunization Up to Date: Yes (FLU UTD) - Psycho Social/Smoking Cessation Hx Smoking History: Never smoked Have you smoked in the past 12 months: Yes Number of Cigarettes Smoked Daily: 2 If you are a former smoker, when did you quit?: REF BOOKLET 'Breaking Loose' booklet given: 09/06/18 Hx Alcohol Use: No Drug/Substance Use Hx: No Substance Use Type: None <Bushra Oneilla - Last Filed: 12/23/19 12:59> <Lorraine Betancur - Last Filed: 12/24/19 15:03> - Past Medical History Allergies/Adverse Reactions: Allergies Allergy/AdvReac Type Severity Reaction Status Date / Time No Known Allergies Allergy Verified 12/23/19 11:39 Home Medications: Ambulatory Orders Folic Acid 1 mg PO DAILY 01/05/17 Apixaban [Eliquis] 5 mg PO BID #60 tablet 06/13/17 Albuterol Sulfate Inhaler - [Ventolin HFA Inhaler -] 1 - 2 inh PO Q4H #1 inhaler 04/02/18 Folic Acid 1 mg PO DAILY #30 tablet 12/23/19 Oxycodone HCl [Oxycontin] 30 mg PO ASDIR PRN #6 tab.er.12h MDD 2 doses 12/23/19 *Physical Exam - Vital Signs Last Vital Signs Temp Pulse Resp BP Pulse Ox 98.5 F 77 16 141/77 96 12/23/19 11:39 12/23/19 11:39 12/23/19 11:39 12/23/19 11:39 12/23/19 11:39 <Charlene Oneill - Last Filed: 12/23/19 12:59> - Vital Signs Last Vital Signs Temp Pulse Resp BP Pulse Ox 98.5 F 77 16 141/77 96 12/23/19 11:39 12/23/19 11:39 12/23/19 11:39 12/23/19 11:39 12/23/19 11:39 <BetancurLorrainelori - Last Filed: 12/24/19 15:03> ED Treatment Course - LABORATORY CBC & Chemistry Diagram: 12/23/19 12:00 12/23/19 12:00 <Charlene Oneill - Last Filed: 12/23/19 12:59> - LABORATORY CBC & Chemistry Diagram: 12/23/19 12:00 12/23/19 12:00 - ADDITIONAL ORDERS Additional order review: Laboratory Results 12/23/19 12/23/19 12/23/19 12:00 12:00 12:00 WBC 9.1 RBC 3.94 L Hgb 14.2 Hct 39.9 MCV 101.4 H MCH 36.2 H MCHC 35.7 RDW 14.5 Plt Count 305 MPV 8.5 Absolute Neuts (auto) 4.3 Neutrophils % 47.7 D Lymphocytes % 42.2 H D Monocytes % 7.8 Eosinophils % 1.3 Basophils % 1.0 Nucleated RBC % 1 H Retic Count 5.86 H D Sodium 142 Potassium 3.7 Chloride 108 H Carbon Dioxide 28 Anion Gap 6 L BUN 10.1 Creatinine 1.0 Est GFR (CKD-EPI)AfAm 113.31 Est GFR (CKD-EPI)NonAf 97.76 Random Glucose 105 Calcium 8.8 Total Bilirubin 1.2 H AST 49 H ALT 63 H Alkaline Phosphatase 84 Total Protein 7.5 Albumin 3.5 Blood Type O POSITIVE Antibody Screen Negative 12/23/19 12:00 RBC 3.94 L MCV 101.4 H MCHC 35.7 RDW 14.5 MPV 8.5 Neutrophils % 47.7 D Lymphocytes % 42.2 H D Monocytes % 7.8 Eosinophils % 1.3 Basophils % 1.0 - Medications Given in the ED: ED Medications Discontinued Medications Generic Name Dose Route Start Last Admin Trade Name Freq PRN Reason Stop Dose Admin Hydromorphone HCl 4 mg 12/23/19 12:04 12/23/19 12:58 Dilaudid Injection - IVPUSH 12/23/19 12:05 4 mg ONCE ONE Administration <Lorraine Betancur Raven - Last Filed: 12/24/19 15:03> Medical Decision Making - Medical Decision Making 12/23/19 13:00 A/P: 34-year-old male with SCD presenting with typical crisis pain. No evidence of ACS or other complications. -Labs including CBC, retics %, CMP, T&S -Hydromorphone 4mg IVPB (not push!) for pain -Re-assess <Charlene Oneill - Last Filed: 12/23/19 12:59> - Medical Decision Making The patient was seen and evaluated in conjunction with midlevel provider under my direct supervision, ancillary studies were reviewed. I agree with the plan as outlined with [employer] Mai. HPI, workup/dispo as outlined. VS reviewed, wnl. sickle cell exacerbation of pain baseline labs, no anemia baseline with reticulocytosis. pain controlled no cp or sob, doubt ACS or acute chest VS reviewed, unremarkable. anticipate discharge, pcp followup, return precautions 12/23/19 14:57 <Lorraine Betancur - Last Filed: 12/24/19 15:03> Discharge <Charlene Oneill - Last Filed: 12/23/19 12:59> - Discharge Information Problems reviewed: Yes <Lorraine Betancur - Last Filed: 12/24/19 15:03> - Discharge Information Clinical Impression/Diagnosis: Sickle cell crisis Condition: Improved Disposition: HOME - Additional Discharge Information Prescriptions: Folic Acid 1 mg PO DAILY #30 tablet Oxycodone HCl [Oxycontin] 30 mg PO ASDIR PRN #6 tab.er.12h MDD 2 doses PRN Reason: Severe Pain - Follow up/Referral Referrals: Leonid Al MD [Primary Care Provider] - - Patient Discharge Instructions Additional Instructions: Take medications as directed and follow-up with your french pastry cook at scheduled appointment next week
[2019-12-23] MEDS ORDERED: HYDROmorphone HCL CARPU-JECT 2 MG/1 ML DISP.SYRIN IVPUSH ONE (12:04)
[2019-12-23] MEDS ORDERED: SODIUM CHLORIDE 1,000 ML IV SCH (12:15)
[2019-12-23] MEDS ORDERED: SODIUM CHLORIDE 0.45% 1,000 ML IV SCH (12:15)
[2019-12-23] MEDS ORDERED: HYDROmorphone HCl 2 MG/ML VIAL ONE (12:52)
[2019-12-23 13:01] LABS: EOS % 1.3 % (0-4.5); HEMATOCRIT 39.9 % (35.4-49); HEMOGLOBIN 14.2 GM/dL (11.7-16.9); LYMPH % 42.2 % (8-40); MCH 36.2 pg (25.7-33.7); MCHC 35.7 g/dl (32.0-35.9); MEAN CELL VOLUME 101.4 fl (80-96); MEAN PLT VOLUME 8.5 fl (7.5-11.1); MONO % 7.8 % (3.8-10.2); NEUT % 47.7 % (42.8-82.8); PLATELET COUNT 305 K/MM3 (134-434); RBC 3.94 M/mm3 (4.00-5.60); RDW 14.5 % (11.9-15.9); RETICULOCYTES 5.86 % (0.5-1.5); WHITE BLOOD COUNT 9.1 K/mm3 (4.0-10.0)
--- NOTE | 2019-12-23 13:33 | PDOC ---
*Physical Exam - Vital Signs Last Vital Signs Temp Pulse Resp BP Pulse Ox 98.5 F 77 16 141/77 96 12/23/19 11:39 12/23/19 11:39 12/23/19 11:39 12/23/19 11:39 12/23/19 11:39 - Physical Exam General Appearance: Yes: Appropriately Dressed. No: Apparent Distress HEENT: positive: Normal Voice Neck: positive: Supple Respiratory/Chest: positive: Lungs Clear, Normal Breath Sounds. negative: Respiratory Distress Cardiovascular: positive: Regular Rate, S1, S2 Gastrointestinal/Abdominal: positive: Soft. negative: Tender Extremity: positive: Normal Inspection, Normal Range of Motion. negative: Tender, Swelling Integumentary: positive: Dry, Warm Neurologic: positive: Fully Oriented, Alert, Normal Mood/Affect <Stormy Gomes - Last Filed: 12/23/19 13:28> - Vital Signs Last Vital Signs Temp Pulse Resp BP Pulse Ox 98.5 F 77 16 141/77 96 12/23/19 11:39 12/23/19 11:39 12/23/19 11:39 12/23/19 11:39 12/23/19 11:39 <Lorraine Betancur - Last Filed: 12/24/19 15:02> ED Treatment Course - LABORATORY CBC & Chemistry Diagram: 12/23/19 12:00 12/23/19 12:00 - ADDITIONAL ORDERS Additional order review: 12/23/19 12:00 RBC 3.94 L MCV 101.4 H MCHC 35.7 RDW 14.5 MPV 8.5 Neutrophils % 47.7 D Lymphocytes % 42.2 H D Monocytes % 7.8 Eosinophils % 1.3 Basophils % 1.0 - Medications Given in the ED: ED Medications Discontinued Medications Generic Name Dose Route Start Last Admin Trade Name Freq PRN Reason Stop Dose Admin Hydromorphone HCl 4 mg 12/23/19 12:04 12/23/19 12:58 Dilaudid Injection - IVPUSH 12/23/19 12:05 4 mg ONCE ONE Administration <Stormy Gomes - Last Filed: 12/23/19 13:28> - LABORATORY CBC & Chemistry Diagram: 12/23/19 12:00 12/23/19 12:00 - ADDITIONAL ORDERS Additional order review: 12/23/19 12:00 RBC 3.94 L MCV 101.4 H MCHC 35.7 RDW 14.5 MPV 8.5 Neutrophils % 47.7 D Lymphocytes % 42.2 H D Monocytes % 7.8 Eosinophils % 1.3 Basophils % 1.0 - Medications Given in the ED: ED Medications Discontinued Medications Generic Name Dose Route Start Last Admin Trade Name Lobo PRN Reason Stop Dose Admin Hydromorphone HCl 4 mg 12/23/19 12:04 12/23/19 12:58 Dilaudid Injection - IVPUSH 12/23/19 12:05 4 mg ONCE ONE Administration <Lorraine Betancur - Last Filed: 12/24/19 15:02> Medical Decision Making - Medical Decision Making 12/23/19 13:42 Received signout from ORION Oneill Pt is a 34-year-old male with sickle cell disease, takes folic acid and OxyContin but recently ran out, follows up with hematology in the [place], PE 2 years ago after flight, no longer on AC, here with bilateral knee pain consistent with his pain crisis. No other acute symptoms. Labs unremarkable, retic count ~ baseline for patient. On reassessment now, patient reports feeling significantly better after dose of Dilaudid and requesting discharge. Will refill folic acid and give a very small dose of patient's home OxyContin until he can see his checkerer hand at upcoming appointment. <Stormy Gomes - Last Filed: 12/23/19 13:28> - Medical Decision Making agree with midlevel attestation, HPI and PE and workup labs at baseline, no anemia pain controlled anticipate discharge with primary and checkerer hand. 12/24/19 15:02 <Lorraine Betancur - Last Filed: 12/24/19 15:02> Discharge - Discharge Information Problems reviewed: Yes <Stormy Gomes - Last Filed: 12/23/19 13:28> <Lorraine Betancur - Last Filed: 12/24/19 15:02> - Discharge Information Clinical Impression/Diagnosis: Sickle cell crisis Condition: Improved Disposition: HOME - Additional Discharge Information Prescriptions: Folic Acid 1 mg PO DAILY #30 tablet Oxycodone HCl [Oxycontin] 30 mg PO ASDIR PRN #6 tab.er.12h MDD 2 doses PRN Reason: Severe Pain - Follow up/Referral Referrals: Loenid Al MD [Primary Care Provider] - - Patient Discharge Instructions Additional Instructions: Take medications as directed and follow-up with your checkerer hand at scheduled appointment next week - Post Discharge Activity
[2019-12-23 13:44] LABS: ALBUMIN 3.5 g/dl (3.4-5.0); BILIRUBIN,TOTAL 1.2 mg/dL (0.2-1); BLOOD UREA NITROGEN 10.1 mg/dL (7-18); CALCIUM 8.8 mg/dL (8.5-10.1); POTASSIUM 3.7 mmol/L (3.5-5.1); TOT PROT 7.5 g/dl (6.4-8.2)
== END 2019-12-23 14:00 | disposition home or self-care (01) ==
LOC: JER 11:16
PROC: 3E033NZ Introduction of Analgesics, Hypnotics, Sedatives into Peripheral Vein, Percutaneous Approach (ICD-10-PCS; principal; 2019-12-23)
DX: D57.819 Other sickle-cell disorders with crisis, unspecified (principal)
CPT/HCPCS: 36415; 80053; 85025; 85044; 86850; 86900; 86901; 96374; 99282-25; J7030

== ENCOUNTER 2020-06-08 14:13 | Emergency (ER) | payer OTHER ==
--- NOTE | 2020-06-08 14:22 | PDOC ---
Rapid Medical Evaluation Time Seen by Provider: 06/08/20 14:18 Medical Evaluation: Allergies Allergy/AdvReac Type Severity Reaction Status Date / Time No Known Allergies Allergy Verified 12/23/19 11:39 06/08/20 14:18 I have performed a brief in-person evaluation of this patient. CC: left leg pain- feels like usual SCC. Took oxycodone with minimal relief at home. No more oxycodone left from Rx. Heme- Does not remember name but "she works here." PE: Cap refill<2 seconds. No pallor present. Lungs CTAB. Orders: Dilaudid Patient will proceed to ED for further evaluation. 06/08/20 14:24 Discharge Disposition - Diagnosis Sickle cell crisis - Referrals - Patient Instructions - Post Discharge Activity
[2020-06-08 14:27] VITALS: BP 118/80; PULSE 67; TEMP 98.8; BMI 34.9
[2020-06-08] MEDS ORDERED: HYDROmorphone HCL CARPU-JECT 2 MG/1 ML DISP.SYRIN IM ONE (14:27)
[2020-06-08] MEDS ORDERED: SODIUM CHLORIDE 1,000 ML IV STA (14:28)
[2020-06-08] MEDS ORDERED: HYDROmorphone HCl 2 MG/ML VIAL ONE (15:03)
[2020-06-08 15:30] LABS: BASO % 1.2 % (0-2.0); EOS % 1.8 % (0-4.5); HEMATOCRIT 39.2 % (35.4-49); HEMOGLOBIN 13.8 GM/dL (11.7-16.9); LYMPH % 35.3 % (8-40); MCH 35.9 pg (25.7-33.7); MCHC 35.2 g/dl (32.0-35.9); MEAN CELL VOLUME 101.9 fl (80-96); MEAN PLT VOLUME 7.9 fl (7.5-11.1); MONO % 7.7 % (3.8-10.2); PLATELET COUNT 361 K/MM3 (134-434); RBC 3.85 M/mm3 (4.00-5.60); RDW 15.5 % (11.9-15.9); RETICULOCYTES 7.53 % (0.5-1.5); WHITE BLOOD COUNT 11.7 K/mm3 (4.0-10.0)
--- NOTE | 2020-06-08 15:32 | PDOC ---
History of Present Illness - General History Source: Patient Exam Limitations: Clinical Condition - History of Present Illness Initial Comments: 06/08/20 15:28 Patient with past medical history of sickle cell disease presented with complaint of left leg pain from lateral aspect of left hip down to thigh muscle which is consistent with previous sickle cell crisis pain. Patient described pain as burning sharp pain on the left leg. Patient home oxycodone for sickle cell pain which he reported ran out. Denies chest pain, shortness of breath, palpitation, dizziness, fever, chills, weakness or tingling sensation. Patient reported last sickle cell crisis was 4 months ago. Patient is being followed by hematology which patient does not remember the name. Patient reported usually sickle cell pain resolved with Dilaudid and he feels better. 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) Asthma: Yes Cancer: No CVA: No COPD: No (P.E,DVT) CHF: No Dementia: No Diabetes: No GI Disorders: No Disorders: No HTN: No Hypercholesterolemia: No Liver Disease: No Seizures: No Thyroid Disease: No - Immunization History Td Vaccination: No Immunization Up to Date: Yes (FLU UTD) - Psycho-Social/Smoking History Smoking History: Never smoked Have you smoked in the past 12 months: No Number of Cigarettes Smoked Daily: 2 If you are a former smoker, when did you quit?: REF BOOKLET Information on smoking cessation initiated: No 'Breaking Loose' booklet given: 09/06/18 - Substance Abuse Hx (Audit-C & DAST Scrn) How often the patient has a drink containing alcohol: Monthly or less Number of drinks the patient has on a typical day: 1 or 2 How often the patient has six or more drinks on one occasion: Never Score: In Men: 4 or > Positive; In Women: 3 or > Positive: 1 Screen Result (Pos requires Nsg. Audit-10AR): Negative In the last yr the pt used illegal drug/Rx for NonMed reason: No Score: Yes response is considered Positive: 0 Screen Result (Positive result requires Nsg. DAST-10): Negative <Yonatan Alanis - Last Filed: 06/08/20 16:23> <Alton Calixto - Last Filed: 06/08/20 16:47> - Medical History Allergies/Adverse Reactions: Allergies Allergy/AdvReac Type Severity Reaction Status Date / Time No Known Allergies Allergy Verified 06/08/20 14:28 Home Medications: Ambulatory Orders Folic Acid 1 mg PO DAILY 01/05/17 Apixaban [Eliquis] 5 mg PO BID #60 tablet 06/13/17 Albuterol Sulfate Inhaler - [Ventolin HFA Inhaler -] 1 - 2 inh PO Q4H #1 inhaler 04/02/18 Folic Acid 1 mg PO DAILY #30 tablet 12/23/19 Oxycodone HCl [Oxycontin] 30 mg PO ASDIR PRN #6 tab.er.12h MDD 2 doses 12/23/19 traMADol HCL [Ultram -] 50 mg PO Q8H PRN #10 tablet MDD 3 06/08/20 Review of Systems - Review of Systems Able to Perform ROS?: Yes Is the patient limited [place] proficient: No Constitutional: No: Chills, Fever, Malaise HEENTM: No: Symptoms Reported, See HPI, Eye Pain, Blurred Vision, Tearing, Recent change in vision, Double Vision, Cataracts, Ear Pain, Ocular Prothesis, Ear Discharge, Nose Pain, Nose Congestion, Tinnitus, Nose Bleeding, Hearing Loss, Throat Pain, Throat Swelling, Mouth Pain, Dental Problems, Difficulty Swallowing, Mouth Swelling, Other Respiratory: No: Symptoms reported, See HPI, Cough, Orthopnea, Shortness of Breath, SOB with Exertion, SOB at Rest, Stridor, Wheezing, Productive cough, Hemoptysis, Other Cardiac (ROS): No: Symptoms Reported, See HPI, Chest Pain, Edema, Irregular Heart Rate, Lightheadedness, Palpitations, Syncope, Chest Tightness, Other ABD/GI: No: Symptoms Reported, Nausea, Vomiting Musculoskeletal: Yes: Symptoms Reported, See HPI, Muscle Pain (Left thigh pain) Integumentary: No: Symptoms Reported Neurological: No: Symptoms reported, Numbness, Paresthesia, Tingling All Other Systems: Reviewed and Negative <Yonatan Alanis - Last Filed: 06/08/20 16:23> *Physical Exam - Vital Signs Last Vital Signs Temp Pulse Resp BP Pulse Ox 98.8 F 67 17 118/80 100 06/08/20 14:25 06/08/20 14:25 06/08/20 14:25 06/08/20 14:25 06/08/20 14:25 - Physical Exam 06/08/20 15:31 GENERAL: Well developed, well nourished. Awake and alert. No acute distress. HEENT: Normocephalic, atraumatic. PERRLA, EOMI. No conjunctival pallor. Sclera are non-icteric. Moist mucous membranes. Oropharynx is clear. NECK: Supple. Full ROM. CARDIOVASCULAR: Regular rate and rhythm. No murmurs, rubs, or gallops. Distal pulses are 2+ and symmetric. PULMONARY: No evidence of respiratory distress. Lungs clear to auscultation bilaterally. No wheezing, rales or rhonchi. ABDOMINAL: Soft. Non-tender. Non-distended. No rebound or guarding. No organomegaly. Normoactive bowel sounds. MUSCULOSKELETAL Normal range of motion at all joints. Suggestive tenderness to lateral aspect of left thigh muscle. No visible swelling or deformity. No radiculopathy on exam of bilateral lower extremity. EXTREMITIES: No cyanosis. No clubbing. No edema. No calf tenderness. SKIN: Warm and dry. Normal capillary refill. No rashes. No jaundice. NEUROLOGICAL: Alert, awake, appropriate. Gait is normal without ataxia. PSYCHIATRIC: Cooperative. Good eye contact. Appropriate mood General Appearance: Yes: Nourished, Appropriately Dressed. No: Apparent Distress <Yonatan Alanis - Last Filed: 06/08/20 16:23> - Vital Signs Last Vital Signs Temp Pulse Resp BP Pulse Ox 98.8 F 67 17 118/80 100 06/08/20 14:25 06/08/20 14:25 06/08/20 14:25 06/08/20 14:25 06/08/20 14:25 <Alton Calixto - Last Filed: 06/08/20 16:47> ED Treatment Course - LABORATORY CBC & Chemistry Diagram: 06/08/20 15:00 06/08/20 15:00 - Medications Given in the ED: ED Medications Discontinued Medications Generic Name Dose Route Start Last Admin Trade Name Freq PRN Reason Stop Dose Admin Hydromorphone HCl 2 mg 06/08/20 14:27 06/08/20 15:14 Dilaudid Injection - IM 06/08/20 14:28 2 mg ONCE ONE Administration Sodium Chloride 1,000 mls @ 1,000 mls/hr 06/08/20 14:28 06/08/20 15:14 Normal Saline - IV 06/08/20 15:27 1,000 mls/hr ASDIR STA Administration <AnnabelleYonatanes - Last Filed: 06/08/20 16:23> - LABORATORY CBC & Chemistry Diagram: 06/08/20 15:00 06/08/20 15:00 - ADDITIONAL ORDERS Additional order review: Laboratory Results 06/08/20 15:00 Sodium 140 Potassium 4.4 Chloride 105 Carbon Dioxide 26 Anion Gap 9 BUN 11.2 Creatinine 1.0 Est GFR (CKD-EPI)AfAm 112.51 Est GFR (CKD-EPI)NonAf 97.08 Random Glucose 100 Calcium 8.9 Total Bilirubin 0.8 AST 58 H ALT 59 Alkaline Phosphatase 80 Total Protein 7.4 Albumin 3.3 L 06/08/20 15:00 RBC 3.85 L MCV 101.9 H MCHC 35.2 RDW 15.5 MPV 7.9 Neutrophils % 54.0 Lymphocytes % 35.3 Monocytes % 7.7 Eosinophils % 1.8 Basophils % 1.2 - Medications Given in the ED: ED Medications Discontinued Medications Generic Name Dose Route Start Last Admin Trade Name Freq PRN Reason Stop Dose Admin Hydromorphone HCl 2 mg 06/08/20 14:27 06/08/20 15:14 Dilaudid Injection - IM 06/08/20 14:28 2 mg ONCE ONE Administration Sodium Chloride 1,000 mls @ 1,000 mls/hr 06/08/20 14:28 06/08/20 15:14 Normal Saline - IV 06/08/20 15:27 1,000 mls/hr ASDIR STA Administration <Alton Calixto - Last Filed: 06/08/20 16:47> Medical Decision Making - Medical Decision Making 06/08/20 15:29 Patient with past medical history of sickle cell disease presented with complaint of left leg pain from lateral aspect of left hip down to thigh muscle which is consistent with previous sickle cell crisis pain. Patient described pain as burning sharp pain on the left leg. Patient home oxycodone for sickle cell pain which he reported ran out. Denies chest pain, shortness of breath, palpitation, dizziness, fever, chills, weakness or tingling sensation. Patient reported last sickle cell crisis was 4 months ago. Patient is being followed by hematology which patient does not remember the name. Patient reported usually sickle cell pain resolved with Dilaudid and he feels better. Denies any other symptoms Exam significant for subjective moderate tenderness to lateral aspect of left thigh muscle in no acute distress. Normal cardio and lung exam. Patient walking with normal gait. No radiculopathy elicited on exam. No calf tenderness or swelling to bilateral extremities. CBC and reticulocyte count lab ordered. Dilaudid 2 g IV ordered from triage for pain. Will give IV hydration normal saline 1 L. Reassess after lab results 06/08/20 15:47 CBC shows normal H&H with mildly elevated WBC which is likely reactive from pain with mild elevated reticulocyte count. Chemistry lab pending 06/08/20 15:58 Chemistry lab within normal limit. Patient reported complete improvement of pain and request to be discharged. Patient stable for discharge with follow-up back with his tile inspector <Yonatan Alanis - Last Filed: 06/08/20 16:23> - Medical Decision Making 06/08/20 16:46 I reviewed the case of the mid-level practitioner and was available for consultation while in the emergency department <Alton Calixto - Last Filed: 06/08/20 16:47> Discharge - Discharge Information Problems reviewed: Yes - Admission No <Yonatan Alanis - Last Filed: 06/08/20 16:23> <Alton Calixto - Last Filed: 06/08/20 16:47> - Discharge Information Clinical Impression/Diagnosis: Sickle cell crisis, Left leg pain Condition: Improved Disposition: HOME - Additional Discharge Information Prescriptions: traMADol HCL [Ultram -] 50 mg PO Q8H PRN #10 tablet MDD 3 PRN Reason: pain - Follow up/Referral Referrals: Leonid Al MD [Primary Care Provider] - - Patient Discharge Instructions Patient Printed Discharge Instructions: DI for Sickle Cell Anemia, Pain Crisis -- Adult Additional Instructions: Your blood work was normal. Get some rest and take home medication as needed for sickle cell symptoms. Follow-up with your tile inspector - Post Discharge Activity
[2020-06-08 15:52] LABS: ALBUMIN 3.3 g/dl (3.4-5.0); BILIRUBIN,TOTAL 0.8 mg/dL (0.2-1); BLOOD UREA NITROGEN 11.2 mg/dL (7-18); CALCIUM 8.9 mg/dL (8.5-10.1); POTASSIUM 4.4 mmol/L (3.5-5.1); TOT PROT 7.4 g/dl (6.4-8.2)
== END 2020-06-08 16:15 | disposition home or self-care (01) ==
LOC: JER 14:13
PROC: 3E0337Z Introduction of Electrolytic and Water Balance Substance into Peripheral Vein, Percutaneous Approach (ICD-10-PCS; principal; 2020-06-08)
PROC: 3E023GC Introduction of Other Therapeutic Substance into Muscle, Percutaneous Approach (ICD-10-PCS; principal; 2020-06-08)
DX: D57.00 Hb-SS disease with crisis, unspecified (principal)
CPT/HCPCS: 36415; 80053; 85025; 85044; 99284-25